=== PATIENT | male | born 1940 | race Caucasian/White ===

== ENCOUNTER 2016-09-29 22:26 | Emergency (ER) | payer BC ==
--- NOTE | 2016-09-30 00:04 | Emergency Department Record ---
History of Present Illness - General Chief complaint: Flu Like Symptoms Stated complaint: BAD COUGH Time Seen by Provider: 09/30/16 00:03 Source: Patient Mode of Arrival: Ambulatory - History of Present Illness Initial comments: The patient states he had ahs 8 days of coughing and now he cough's so hard it is painful, He has coughed up white on occasion, and is unable to sleep due to the amount of coughing. He is a former smoker of 32 years ago, and denies history of pneumonia. He does not get the flu shot. PMH includes a CABG about 10 years ago, low BP, andintermittent rapid HR. Onset/Timin -: Days(s) Severity scale (1-10): 6 Quality: Sharp Consistency: Intermittent Improves with: None Worsens with: Other Associated Symptoms: Denies other symptoms - Chin Coma Scale Eye Response: (4) Open spontaneously Motor Response: (6) Obeys commands Verbal Response: (5) Oriented [place] Total: 15 - Related Data Home Medications Medication Instructions Recorded Confirmed Last Taken Aspirin Chewable 81 mg PO DAILY 05/21/14 09/29/16 09/06/15 15:15 324 Previous Rx's Medication Instructions Recorded Azithromycin [Zithromax] 250 mg PO DAILY #4 tab 09/30/16 Promethazine HCl/Codeine 5 - 10 ml PO .AT BEDTIME PRN #60 ml 09/30/16 [Phenergan W/Codeine] Allergies Allergy/AdvReac Type Severity Reaction Status Date / Time No Known Drug Allergies Allergy Verified 09/29/16 23:03 Travel Screening - Travel/Exposure Within Last 30 Days Have you traveled within the last 30 days?: No - Travel/Exposure Within Last Year Have you traveled outside the [place] in the last year?: No - Additonal Travel Details Have you been exposed to anyone with a communicable illness?: No - Travel Symptoms Symptom Screening: None Review of Systems Reviewed: No additional complaints except as noted below Constitutional: Reports: As per HPI. Denies: Chills, Fever, Malaise, Night sweats, Weakness, Weight change Eyes: Reports: As per HPI. Denies: Eye discharge, Eye pain, Photophobia, Vision change ENT: Reports: As per HPI. Denies: Congestion, Dental pain, Ear pain, Epistaxis , Hearing loss, Throat pain Respiratory: Reports: As per HPI. Denies: Cough, Dyspnea, Hemoptysis, Stridor, Wheezes Cardiovascular: Reports: As per HPI. Denies: Arrhythmia, Chest pain, Dyspnea on exertion, Edema, Murmurs, Orthopnea, Palpitations, Paroxysmal nocturnal dyspnea, Rheumatic Fever, Syncope Endocrine: Reports: As per HPI. Denies: Fatigue, Heat or cold intolerance, Polydipsia, Polyuria Gastrointestinal: Reports: As per HPI. Denies: Abdominal pain, Constipation, Diarrhea, Hematemesis, Hematochezia, Melena, Nausea, Vomiting Genitourinary: Reports: As per HPI. Denies: Dysuria, Frequency, Hematuria, Incontinence, Retention, Testicular pain, Testicular mass, Urgency Musculoskeletal: Reports: As per HPI. Denies: Arthralgia, Back pain, Gout, Joint swelling, Myalgia, Neck pain Skin: Reports: As per HPI. Denies: Bruising, Change in color, Change in hair/ nails, Lesions, Pruritus, Rash Neurological: Reports: As per HPI. Denies: Abnormal gait, Confusion, Headache, Numbness, Paresthesias, Seizure, Tingling, Tremors, Vertigo, Weakness Psychiatric: Reports: As per HPI. Denies: Anxiety, Auditory hallucinations, Depression, Homicidal thoughts, Suicidal thoughts, Visual hallucinations Hematological/Lymphatic: Reports: As per HPI. Denies: Anemia, Blood Clots, Easy bleeding, Easy bruising, Swollen glands Past Medical History - SOCIAL HISTORY Smoking Status: Former smoker Alcohol Use: None Drug Use: None - RESPIRATORY Hx Respiratory Disorders: No - CARDIOVASCULAR Hx Cardio Disorders: Yes Hx Cardiac Cath: Yes Hx Chest Pain: Yes (triple bypass denies [place]) - NEURO Hx Neuro Disorders: No - GI Hx GI Disorders: No - Hx Genitourinary Disorders: No - ENDOCRINE Hx Endocrine Disorders: No - MUSCULOSKELETAL Hx Musculoskeletal Disorders: Yes Hx Arthritis: Yes ("I THINK I HAVE GOUT") - PSYCH Hx Psych Problems: No - HEMATOLOGY/ONCOLOGY Hx Hematology/Oncology Disorders: Yes Hx Cancer: Yes (Colon) Hx Chemotherapy: Yes Hx Radiation Therapy: Yes Family Medical History Any Significant Family History?: No Hx Heart Disease: Father Hx HTN: Brother/Sister Hx Resp Disorders: Brother/Sister Physical Exam - General General Appearance: Alert, Oriented x3, Cooperative, Moderate distress ( coughing spasms ) - Head Head exam: Normal inspection - Eye Eye exam: Normal appearance, PERRL Pupils: Normal accommodation - ENT ENT exam: Normal exam, Mucous membranes moist, Normal external ear exam, Normal orophraynx, TM's normal bilaterally Ear exam: Normal external inspection. negative: External canal tenderness Nasal Exam: Normal inspection. negative: Discharge, Sinus tenderness Mouth exam: Normal external inspection, Tongue normal Teeth exam: Normal inspection. negative: Dental caries Throat exam: Normal inspection. negative: Tonsillar erythema, Tonsillar exudate - Neck Neck exam: Normal inspection, Full ROM. negative: Tenderness - Respiratory Respiratory exam: Chest wall tenderness (left anterior sternal edge), Decreased breath sounds, Prolonged expiratory. negative: Respiratory distress - Cardiovascular Cardiovascular Exam: Regular rate, Normal rhythm, Normal heart sounds - GI/Abdominal GI/Abdominal exam: Soft, Normal bowel sounds. negative: Tenderness - Rectal Rectal exam: Deferred - exam: Deferred - Extremities Extremities exam: Normal inspection, Full ROM, Normal capillary refill. negative: Calf tenderness, Pedal edema, Tenderness - Back Back exam: Reports: Normal inspection, Full ROM. Denies: Muscle spasm, Rash noted, Tenderness - Neurological Neurological exam: Alert, CN II-XII intact, Normal gait, Oriented X3, Reflexes normal - Psychiatric Psychiatric exam: Normal affect, Normal mood - Skin Skin exam: Dry, Intact, Normal color, Warm Course Vital Signs 09/29/16 23:03 Temperature 98.6 F Pulse Rate 76 Respiratory 22 Rate Blood Pressure 139/82 Pulse Ox 96 Medical Decision Making - Data Complexity MDM Data: X-Ray Ordered and/or Reviewed (Increased markings behind heart and on left hilar region per Ed physician.) Disposition Disposition: Discharge Clinical Impression: Pneumonia Qualifiers: Pneumonia type: due to unspecified organism Laterality: left Lung location: lower lobe of lung Qualified Code(s): J18.1 - Lobar pneumonia, unspecified organism Disposition: Home, Self-Care Condition: (1) Good Instructions: Bacterial Pneumonia (ED) Additional Instructions: Take antibiotics as directed until gone. Tylenol or ibprofen as directed as needed for fevers, pain. Phenergan with codeine Elixir at bedtime 10 ml for cough suppression/sleep. Follow up with Dr. Pascal this week without fail for recheck. Your xray reading was preliminary ONLY, and any further final reading that differs from this preliminary reading will cause you to be notified. There is a chance you could need further studies, such as a CT, for example. Prescriptions: Promethazine HCl/Codeine [Phenergan W/Codeine] 5 - 10 ml PO .AT BEDTIME PRN #60 ml PRN Reason: Cough Azithromycin [Zithromax] 250 mg PO DAILY #4 tab Forms: Patient Portal Access
[2016-09-30 00:49] LABS: INFLUENZA A NEGATIVE (NEGATIVE); INFLUENZA B NEGATIVE (NEGATIVE)
[2016-09-30] MEDS ORDERED: CEFTRIAXONE SODIUM 2GM VIAL IM ONE (01:33)
[2016-09-30] MEDS ORDERED: AZITHROMYCIN 500 MG TABLET PO ONE (01:33)
[2016-09-30] MEDS ORDERED: PROMETHAZINE W/CODEINE 10ML UD PO ONE (01:40)
--- NOTE | 2016-10-03 14:34 | RADIOLOGY REPORT ---
EXAM: CHEST, TWO VIEWS HISTORY: COUGH, CHEST PAIN. TECHNIQUE: PA and lateral views of the chest were obtained. Comparison: Portable chest 01/09/15. FINDINGS: Postop sternotomy again evident. The heart size is within normal limits. Calcification and torsion of the aorta. Some segmental elevation of the right hemidiaphragm anteriorly. Apical pleural thickening bilaterally. There is a questionable small amount of infiltrate in the lung posterior to the heart seen on the lateral view. Old right rib fractures posteriorly involving the right fourth and fifth ribs. Mild spurring in the spine. There is some spurring in the acromioclavicular joints bilaterally at the shoulders. IMPRESSION: 1. POSTOP STERNOTOMY. 2. CALCIFICATION AND TORSION OF THE AORTA. 3. QUESTIONABLE SMALL AMOUNT OF INFILTRATE POSTERIOR TO THE HEART. 4. OLD RIGHT RIB FRACTURES. 5. DEGENERATIVE CHANGE IN THE SHOULDERS. JOB NUMBER: [id number] MTDD
== END 2016-09-30 02:06 | disposition home or self-care (01) ==
LOC: ER 22:26
DX: J18.1 Lobar pneumonia, unspecified organism (principal)
CPT/HCPCS: 71020; 87400; 96372; 99283; 99284

== ENCOUNTER 2016-10-10 07:55 | Emergency (ER) | payer BC ==
--- NOTE | 2016-10-10 08:13 | Emergency Department Record ---
History of Present Illness - General Chief Complaint: Chest Pain Stated Complaint: CHEST PAIN Time Seen by Provider: 10/10/16 08:03 Source: Patient Mode of Arrival: Ambulatory Limitations: No limitations - History of Present Illness Initial Comments: The patient is here due to a one hour hx of chest tightness which is similar to symptoms in the past when he has rapid A fib. He denies any SOB or SYLVAIN but has had a cough for the last couple of weeks. The patient was here in the ER last week and was treated with an oral Abx. He also has a hx of a 3 vessel CABG in the past. MD Complaint: Chest pain Onset/Timin -: Hour(s) Onset: Awoke with symptoms Pain Location: Substernal Quality: Aching Consistency: Constant Improves With: Nothing Worsens With: Nothing Treatments Prior to Arrival: Aspirin - Related Data Home Medications Medication Instructions Recorded Confirmed Last Taken Aspirin Chewable 81 mg PO DAILY 05/21/14 10/10/16 10/10/16 Previous Rx's Medication Instructions Recorded Doxycycline Monohydrate [Mondoxyne 100 mg PO BID #14 capsule 10/10/16 Nl] Allergies Allergy/AdvReac Type Severity Reaction Status Date / Time No Known Drug Allergies Allergy Verified 09/29/16 23:03 Travel Screening - Travel/Exposure Within Last 30 Days Have you traveled within the last 30 days?: No - Travel/Exposure Within Last Year Have you traveled outside the [place] in the last year?: No - Additonal Travel Details Have you been exposed to anyone with a communicable illness?: No Review of Systems Constitutional: Denies: Chills, Fever Eyes: Denies: Eye discharge ENT: Reports: Congestion Respiratory: Reports: Cough. Denies: Dyspnea Cardiovascular: Denies: Arrhythmia, Chest pain Endocrine: Denies: Fatigue Gastrointestinal: Denies: Abdominal pain Genitourinary: Denies: Dysuria Musculoskeletal: Denies: Back pain Skin: Denies: Bruising Past Medical History - SOCIAL HISTORY Smoking Status: Former smoker Alcohol Use: None Drug Use: None - RESPIRATORY Hx Respiratory Disorders: No - CARDIOVASCULAR Hx Cardio Disorders: Yes Hx Cardiac Cath: Yes Hx Chest Pain: Yes (triple bypass denies [place]) Hx Palpitations: Yes - NEURO Hx Neuro Disorders: No - GI Hx GI Disorders: No - Hx Genitourinary Disorders: No - ENDOCRINE Hx Endocrine Disorders: No - MUSCULOSKELETAL Hx Musculoskeletal Disorders: Yes Hx Arthritis: Yes ("I THINK I HAVE GOUT") - PSYCH Hx Psych Problems: No - HEMATOLOGY/ONCOLOGY Hx Hematology/Oncology Disorders: Yes Hx Cancer: Yes (Colon) Hx Chemotherapy: Yes Hx Radiation Therapy: Yes Family Medical History Any Significant Family History?: No Hx Heart Disease: Father Hx HTN: Brother/Sister Hx Resp Disorders: Brother/Sister Physical Exam - General General Appearance: Alert, Oriented x3, Cooperative, No acute distress - Head Head exam: Atraumatic, Normocephalic, Normal inspection - Eye Eye exam: Normal appearance, PERRL - ENT Throat exam: Normal inspection. negative: Tonsillar erythema, Tonsillar exudate - Neck Neck exam: Normal inspection, Full ROM. negative: Tenderness - Respiratory Respiratory exam: Normal lung sounds bilaterally. negative: Respiratory distress - Cardiovascular Cardiovascular Exam: Regular rate, Tachycardia. negative: Normal rhythm - GI/Abdominal GI/Abdominal exam: Soft, Normal bowel sounds. negative: Tenderness - Extremities Extremities exam: Normal inspection, Full ROM, Normal capillary refill. negative: Tenderness - Neurological Neurological exam: Alert, Normal gait. negative: Abnormal gait, Motor sensory deficit - Psychiatric Psychiatric exam: negative: Anxious Course Vital Signs 10/10/16 07:57 Temperature 97.7 F Pulse Rate 155 H Respiratory 20 Rate Blood Pressure 152/102 Pulse Ox 97 - Reevaluation(s) Reevaluation #1: The patient is doing much better at this time. He did convert to NSR with 15 mg of the Cardizem and is now resting comfortably with no pain or SYLVAIN. I did cancel the drip due to the conversion. 10/10/16 08:28 Reevaluation #2: 2nd EKG: NSR at 78, RBBB. No change from old. 10/10/16 09:18 Reevaluation #3: The patient is doing very well at this time. He denies any pain or discomfort and his HR has been WNL's for over an hour now. I did explain to the patient the need to stay in the hospital to make sure his heart is OK and to be sure he did not have any heart damage. The patient is refusing to stay here at [facility]. I explained the risk of leaving and the patient accepts the risks of leaving which include having heart damage, an OK, becoming disabled and even dying. The patient understands and accepts the risks and understands we cannot be held liable for NOT keeping him here. He is to see his PCP next week and to return to the ER for any problems or any pain. 10/10/16 09:19 Medical Decision Making - Data Complexity MDM Data: Labs Ordered and/or Reviewed, X-Ray Ordered and/or Reviewed, EKG Ordered and/or Reviewed - Lab Data Result diagrams: 10/10/16 08:00 10/10/16 08:00 - EKG Data -: EKG Interpreted by Me EKG: Unchanged From Previous (Supraventricular tachycardia at 160) - Radiology Data Radiology results: Report reviewed (CXR: No acute changes.) Disposition Disposition: Discharge Clinical Impression: Paroxysmal SVT (supraventricular tachycardia) Disposition: Home, Self-Care Condition: (1) Good Instructions: Chest Pain (ED) Additional Instructions: Please see your PCP early next week for recheck. Take the Doxycycline as directed. Please return to the ER for any pain, fast heart rate of any trouble breathing. Prescriptions: Doxycycline Monohydrate [Tristianxyne Nl] 100 mg PO BID #14 capsule Forms: Patient Portal Access Time of Disposition: 09:22
[2016-10-10] MEDS ORDERED: DILTIAZEM HCL 125 MG in 0.9 % SODIUM CHLORIDE 100ML 100 ML IV SCH (08:15)
[2016-10-10] MEDS: DILTIAZEM 25MG/5ML VIAL IV ONE (08:16)
[2016-10-10 08:20] LABS: BASO % 0.4 % (0-6); EOS % 3.9 % (0-6); GRAN % 63.8 % (47-80); HEMATOCRIT 43.7 % (42.0-52.0); HEMOGLOBIN 14.3 gm/dl (14.0-18.0); LYMPH % 21.3 % (16-45); MEAN CELL VOLUME 95.4 fl (81-97); MEAN CORPUSCULAR HEMOGLOBIN 31.2 pg (27-33); MEAN CORPUSCULAR HGB CONC 32.7 g/dl (32-36); MEAN PLATELET VOLUME 9.5 fl (7.4-10.4); MONO % 10.6 % (0-9); PLATELET COUNT 305 K/uL (130-400); RED BLOOD COUNT 4.58 M/uL (4.40-5.70); RED CELL DISTRIBUTION WIDTH 12.5 % (11.5-14.5); WHITE BLOOD COUNT W/O DIFF 11.2 K/uL (4.2-12.2)
[2016-10-10] MEDS: ASPIRIN 325 MG TABLET PO ONE (08:21)
[2016-10-10 08:35] LABS: ANION GAP 11.9 (7-16); BLOOD UREA NITROGEN 23 mg/dL (9-20); CARBON DIOXIDE 22.1 mmol/L (22-30); CREATINE PHOSPHOKINASE 97 U/L (55-170); CREATININE 1.3 mg/dL (0.66-1.25); EST GLOMERULAR FILTRATION RATE 57 ml/min; GLUCOSE,RANDOM 144 mg/dL (70-110); INR 0.93; PARTIAL THROMBOPLASTIN TIME 28.2 SECONDS (24.5-39.1); PROTHROMBIN TIME (PATIENT) 10.5 SECONDS (9.5-12.1)
[2016-10-10 08:47] LABS: CKMB 1.1 ug/L (0-6)
[2016-10-10 08:51] LABS: TROPONIN I < 0.012 ng/mL (0.00-0.034)
== END 2016-10-10 09:49 | disposition home or self-care (01) ==
LOC: ER 07:55
DX: I47.1 Supraventricular tachycardia (principal); Z98.61 Coronary angioplasty status
CPT/HCPCS: 71020; 80048; 82550; 82553; 84484; 85025; 85610; 85730; 93005; 93010; 96374; 99284

== ENCOUNTER 2017-07-20 18:30 | Observation (INO) | payer BC ==
[2017-07-20] MEDS ORDERED: SODIUM CHLORIDE 0.9% 500 ML IV ONE (18:32)
[2017-07-20] MEDS ORDERED: ACETAMINOPHEN 1,000 MG/100 ML BTL IVPB ONE (18:33)
[2017-07-20] MEDS ORDERED: METHYLPREDNISOLONE PF 125MG/VIAL IVP ONE (18:34)
--- NOTE | 2017-07-20 18:39 | Emergency Department Record ---
History of Present Illness - General Chief complaint: Lower Extremity Pain Stated complaint: BOTH LEG PAIN Time Seen by Provider: 07/20/17 18:31 Source: Patient, EMS Mode of Arrival: Stretcher Limitations: No limitations - History of Present Illness Initial comments: 77 yo male presents with bilateral ankle and knee pain that started on Friday. The pain has gradually increased. He states he has a history of gout. In the last 24 hours the pain has made it difficult to ambulate any distance. No fevers or redness. No nausea, vomiting, or diarrhea. No history of DVT or CHF. He has noted some swelling of the joints. He lives with his grandson who he reports is not helpful. His PCP is Dr Pascal. Complaint: Extremity pain, Joint pain -: Days(s) Location: Bilateral -: Yes Arthralgia Radiation: Distal Consistency: Constant Improves with: Immobilization Worsens with: Palpation, Walking, Weight bearing Associated Symptoms: Arthralgias, Other (cough for over a month) - Related Data Allergies Allergy/AdvReac Type Severity Reaction Status Date / Time No Known Drug Allergies Allergy Verified 07/20/17 18:33 Review of Systems Constitutional: Denies: Chills, Fever, Malaise, Weakness Eyes: Denies: Eye discharge ENT: Denies: Congestion, Dental pain, Ear pain, Epistaxis Respiratory: Reports: Cough. Denies: Dyspnea, Hemoptysis Cardiovascular: Denies: Chest pain, Palpitations, Syncope Endocrine: Denies: Fatigue Gastrointestinal: Denies: Abdominal pain, Diarrhea, Nausea, Vomiting Genitourinary: Denies: Dysuria, Frequency, Hematuria Musculoskeletal: Reports: Arthralgia, Joint swelling. Denies: Back pain, Myalgia, Neck pain Skin: Denies: Bruising, Change in color, Rash Neurological: Denies: Headache, Numbness, Paresthesias, Weakness Psychiatric: Denies: Anxiety Hematological/Lymphatic: Denies: Blood Clots, Easy bleeding, Easy bruising, Swollen glands Past Medical History - SOCIAL HISTORY Smoking Status: Former smoker Alcohol Use: None Drug Use: None - RESPIRATORY Hx Respiratory Disorders: No - CARDIOVASCULAR Hx Cardio Disorders: Yes Hx Cardiac Cath: Yes Hx Chest Pain: Yes (triple bypass denies [place]) Hx Palpitations: Yes - NEURO Hx Neuro Disorders: No - GI Hx GI Disorders: No - Hx Genitourinary Disorders: No - ENDOCRINE Hx Endocrine Disorders: No - MUSCULOSKELETAL Hx Musculoskeletal Disorders: Yes Hx Arthritis: Yes Comment:: gout - PSYCH Hx Psych Problems: No - HEMATOLOGY/ONCOLOGY Hx Hematology/Oncology Disorders: Yes Hx Cancer: Yes (Colon) Hx Chemotherapy: Yes Hx Radiation Therapy: Yes Family Medical History Any Significant Family History?: Yes Hx Heart Disease: Father Hx HTN: Brother/Sister Hx Resp Disorders: Brother/Sister Physical Exam - General General Appearance: Alert, Oriented x3, Cooperative, No acute distress Limitations: No limitations - Head Head exam: Atraumatic - Eye Eye exam: Normal appearance. negative: Conjunctival injection, Scleral icterus - ENT ENT exam: Normal exam, Mucous membranes moist Ear exam: Normal external inspection Nasal Exam: Normal inspection Mouth exam: Normal external inspection, Tongue elevation Teeth exam: Normal inspection Throat exam: Normal inspection - Neck Neck exam: Normal inspection, Full ROM. negative: Tenderness - Respiratory Respiratory exam: Normal lung sounds bilaterally. negative: Respiratory distress - Cardiovascular Cardiovascular Exam: Regular rate, Normal rhythm, Normal heart sounds - GI/Abdominal GI/Abdominal exam: Soft. negative: Rigid, Tenderness - Rectal Rectal exam: Deferred - exam: Deferred - Extremities Extremities exam: Full ROM, Joint swelling, Normal capillary refill, Tenderness. negative: Calf tenderness, Pedal edema Image of Full Body: 1 - mild bilateral ankle swelling, no redness or warmth, no calf tenderness, pain with ROM, Mild left knee swelling, pain with ROM, no warmth or erythema 2 - see other note - Back Back exam: Reports: Normal inspection. Denies: CVA tenderness (R), CVA tenderness (L) - Neurological Neurological exam: Alert, Oriented X3 - Psychiatric Psychiatric exam: Normal affect, Normal mood - Skin Skin exam: Dry, Intact, Normal color, Warm. negative: Erythema Course - Reevaluation(s) Reevaluation #1: 07/20/17 19:24 No acute changes on the CBC 07/20/17 19:37 The XRs were reviewed Left Knee effusion, small, tri compartmental degenerative changes Ankle STS degenerative changes CXR NAD. 07/20/17 19:39 The CRP is 22, the Uric Acid is elevated at 7.5, CR is 1.4 07/20/17 19:43 Dr Pascal saw the patient in the ER 07/20/17 19:52 The patient is too painful to walk/stand Dr Pascal with admit OBV 07/20/17 20:13 Influenza Negative Medical Decision Making - Lab Data Result diagrams: 07/20/17 18:42 07/20/17 18:42 Disposition Disposition: Admit Clinical Impression: Gout attack Qualifiers: Gout site: unspecified site Gout etiology: unspecified cause Qualified Code(s) : M10.9 - Gout, unspecified Disposition: Still a Patient at [facility] Decision to Admit: Admit from ER Decision to Admit Date: 07/20/17 Decision to Admit Time: 19:53 Time Discussed w/Accepting Physician: 19:53 Condition: (2) Stable Time of Disposition: 19:53 Quality - Quality Measures Quality Measures: N/A - Blood Pressure Screening Does Patient Have Any of the Following: Active Dx of HTN Blood Pressure Classification: Hypertensive Reading Systolic Measurement: 148 Diastolic Measurement: 91 Screening for High Blood Pressure: Patient Exclusion, Hx of HTN [G9744] Pre-Hypertensive Follow-up Interventions: Referral to alternative/primary care provider.
[2017-07-20 19:17] LABS: BASO % 0.3 % (0-6); EOS % 4.4 % (0-6); GRAN % 69.5 % (47-80); HEMATOCRIT 40.4 % (42.0-52.0); HEMOGLOBIN 13.6 gm/dl (14.0-18.0); LYMPH % 13.7 % (16-45); MEAN CELL VOLUME 94.4 fl (81-97); MEAN CORPUSCULAR HEMOGLOBIN 31.7 pg (27-33); MEAN CORPUSCULAR HGB CONC 33.7 g/dl (32-36); MEAN PLATELET VOLUME 9.8 fl (7.4-10.4); MONO % 12.1 % (0-9); PLATELET COUNT 278 K/uL (130-400); RED BLOOD COUNT 4.28 M/uL (4.40-5.70); RED CELL DISTRIBUTION WIDTH 12.3 % (11.5-14.5); WHITE BLOOD COUNT W/O DIFF 11.1 K/uL (4.2-12.2)
[2017-07-20 19:29] LABS: BILIRUBIN,TOTAL 0.5 mg/dL (0.2-1.0); CREATININE 1.4 mg/dL (0.7-1.2)
[2017-07-20 19:30] LABS: TOTAL PROTEIN 8.2 g/dL (6.6-8.7)
[2017-07-20 19:34] LABS: ALB/GLOB RATIO 0.8 (1.1-1.8); ALBUMIN 3.7 g/dL (4.0-5.0); C-REACTIVE PROTEIN 22.22 mg/dL (<0.5)
[2017-07-20 19:40] LABS: NTpro B-NATRIURETIC PEPTIDE 478.8 pg/mL (<450)
[2017-07-20] MEDS ORDERED: KETOROLAC 30 MG/ML VIAL IVP ONE (19:41)
[2017-07-20 19:48] LABS: ERYTHROCYTE SEDIMENTATION RATE 85 mm/hr (0-20)
[2017-07-20 20:02] LABS: INFLUENZA A NEGATIVE (NEGATIVE); INFLUENZA B NEGATIVE (NEGATIVE)
[2017-07-20] MEDS ORDERED: METHYLPREDNISOLONE PF 125MG/VIAL IVP SCH (20:13)
[2017-07-20] MEDS ORDERED: ACETAMINOPHEN 1,000 MG/100 ML BTL IVPB SCH (20:13)
[2017-07-20] MEDS ORDERED: MORPHINE SULFATE 5 MG/ML PFS IVP PRN (20:13)
[2017-07-20] MEDS ORDERED: 0.9 % SODIUM CHLORIDE 1000ML 1,000 ML IV PRN (20:13)
[2017-07-20] MEDS: ACETAMINOPHEN 1,000 MG/100 ML BTL IVPB SCH (23:26)
[2017-07-21] MEDS: ACETAMINOPHEN 1,000 MG/100 ML BTL IVPB SCH (05:23)
[2017-07-21] MEDS ORDERED: METHYLPREDNISOLONE PF 125MG/VIAL IVP SCH (06:00)
--- NOTE | 2017-07-21 07:11 | RADIOLOGY REPORT ---
EXAM: LEFT ANKLE HISTORY: INJURY. TECHNIQUE: Three views of the left ankle were performed. FINDINGS: There is osteopenia. There is diffuse soft tissue swelling. There is an osteochondral defect of the medial tibial plateau. There is a calcaneal spur. There is peripheral vascular disease. IMPRESSION: 1. OSTEOPENIA. SOFT TISSUE SWELLING. 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 2. PERIPHERAL VASCULAR DISEASE AND CALCANEAL SPUR. JOB NUMBER: [id number] MTDD
--- NOTE | 2017-07-21 07:13 | RADIOLOGY REPORT ---
EXAM: CHEST, TWO VIEWS HISTORY: DIFFICULTY IN BREATHING. TECHNIQUE: Frontal and lateral views of the chest were performed. FINDINGS: Postop sternotomy wires. The heart size is normal. The lungs are hyperinflated. Healed posterior rib fracture deformities. No infiltrate or pleural effusion. IMPRESSION: NO ACUTE DISEASE PROCESS. HYPERINFLATED LUNGS. HEALED RIGHT POSTERIOR RIB FRACTURE DEFORMITIES. JOB NUMBER: [id number] MTDD
--- NOTE | 2017-07-21 07:15 | RADIOLOGY REPORT ---
EXAM: LEFT KNEE HISTORY: INJURY. TECHNIQUE: Four views of the left knee were performed. FINDINGS: There is tricompartmental degenerative change. There is a moderate joint effusion. No definitive fracture. IMPRESSION: TRICOMPARTMENTAL DEGENERATIVE CHANGE. JOINT EFFUSION. NO DEFINITIVE FRACTURE. JOB NUMBER: [id number] MTDD
[2017-07-21] MEDS ORDERED: ACETAMINOPHEN 500 MG TABLET PO PRN (08:27)
[2017-07-21] MEDS ORDERED: ONDANSETRON 4 MG ODT TABLET SL PRN (08:29)
[2017-07-21] MEDS: INDOMETHACIN 25 MG CAPSULE PO SCH ×4 (10:00→22:48)
[2017-07-21] MEDS ORDERED: ASPIRIN 81 MG CHEWABLE TABLET PO SCH (10:00)
--- NOTE | 2017-07-21 14:25 | Discharge Note ---
VTE H&P Assessment - Risk for VTE Risk for VTE: No Risk Level: Very Low Risk Assessment Date: 07/21/17 Risk Assessment Time: 14:45 VTE Orders Placed or Will Be Placed: No VTE Reason for No Prophylaxis: Not Indicated Discharge Medications - Discharge Medications Home Medications: Ambulatory Orders Aspirin Chewable 81 mg PO DAILY 05/21/14 [Last Taken 10/10/16] Discharge Note - Date Date of Discharge Note: 07/21/17 Condition: (2) Stable Referrals: Steve Pascal D.OEmmy [Primary Care Provider] - Forms: Patient Portal Access
--- NOTE | 2017-07-21 14:51 | Discharge Note ---
VTE H&P Assessment - Risk for VTE Risk for VTE: No Risk Level: Very Low Risk Assessment Date: 07/21/17 Risk Assessment Time: 14:45 VTE Orders Placed or Will Be Placed: No VTE Reason for No Prophylaxis: Not Indicated Discharge Medications - Discharge Medications Prescriptions: Indomethacin [Indocin] 50 mg PO TID #14 capsule Home Medications: Ambulatory Orders Acetaminophen [Tylenol 500Mg Tab] 1,000 mg PO Q6H PRN tablet 07/21/17 [Last Taken Unknown] Aspirin Chewable 81 mg PO DAILYWM tab.chew 07/21/17 [Last Taken Unknown] Indomethacin [Indocin] 50 mg PO TID #14 capsule 07/21/17 [Last Taken Unknown] Discharge Note - Date Date of Discharge Note: 07/21/17 Disposition: Home, Self-Care Condition: (2) Stable Additional Instructions: follow up with Dr. Pascal on th indocin 50 mg three times a day aspirin 81 mg daily Referrals: Steve Pascal D.O. [Primary Care Provider] - Forms: Patient Portal Access Activity at Discharge: Increase Activity as Tolerated
[2017-07-21] MEDS: ENOXAPARIN 30 MG/0.3 ML SYR SQ SCH (16:20)
[2017-07-21] MEDS ORDERED: ALBUTEROL HFA 8 GM INHALER INH PRN (17:11)
[2017-07-21] MEDS: GUAIFENESIN 600 MG TABCR PO SCH ×2 (21:36→22:48)
[2017-07-22] MEDS ORDERED: KETOROLAC 30 MG/ML VIAL IVP ONE (06:31)
--- NOTE | 2017-07-22 07:49 | Discharge Note ---
VTE H&P Assessment - Risk for VTE Risk for VTE: Yes Risk Level: Low Risk Assessment Date: 07/21/17 Risk Assessment Time: 14:45 VTE Orders Placed or Will Be Placed: Yes VTE Reason for No Prophylaxis: Not Indicated Discharge Medications - Discharge Medications Prescriptions: Indomethacin [Indocin] 50 mg PO TID #14 capsule Home Medications: Ambulatory Orders Acetaminophen [Tylenol 500Mg Tab] 1,000 mg PO Q6H PRN tablet 07/21/17 [Last Taken Unknown] Aspirin Chewable 81 mg PO DAILYWM tab.chew 07/21/17 [Last Taken Unknown] Indomethacin [Indocin] 50 mg PO TID #14 capsule 07/21/17 [Last Taken Unknown] Discharge Note - Date Date of Discharge Note: 07/22/17 Disposition: Home, Self-Care Condition: (2) Stable Additional Instructions: follow up with Dr. Pascal on th indocin 50 mg three times a day aspirin 81 mg daily Prescriptions: Indomethacin [Indocin] 50 mg PO TID #14 capsule Referrals: Steve Pascal DEmmyOEmmy [Primary Care Provider] - Forms: Patient Portal Access Activity at Discharge: Increase Activity as Tolerated
[2017-07-22] MEDS ORDERED: ASPIRIN 81 MG CHEWABLE TABLET PO SCH (08:00)
[2017-07-22 08:32] LABS: CREATININE 1.3 mg/dL (0.7-1.2)
[2017-07-22] MEDS: INDOMETHACIN 25 MG CAPSULE PO SCH (10:39)
[2017-07-22] MEDS: GUAIFENESIN 600 MG TABCR PO SCH (10:41)
[2017-07-22] MEDS: ENOXAPARIN 30 MG/0.3 ML SYR SQ SCH (10:41)
--- NOTE | 2017-07-23 12:30 | History and Physical Report ---
DATE: 07/21/2017 at 2:38 p.m. This is an H&P that was done yesterday at about 8 p.m. on 07/20/2017. CHIEF COMPLAINT: Unable to walk, painful bilateral knees and bilateral ankles. HISTORY OF PRESENT ILLNESS: This 77-year-old man came into the emergency department by ambulance. His knees and ankles were swollen. He was evaluated in the ER by Dr. Jolley who diagnosed him with acute gouty arthritis and he felt it was too painful to go home. I happened to be in the ER at that time. I went in to see him. He is a patient who claims he has seen me in the past but has never seen me in the office and has seen me only in the hospital. He was unable to get up off the cart and ambulate, so he was placed in the hospital for observation. He was given IV Solu-Medrol and Toradol 50 mg IV and admitted for more Solu-Medrol and further evaluation. He had in the emergency department a left knee x-ray which was negative, a left ankle x-ray which was negative. A chest x-ray was negative, because he had a slight cough. He stopped smoking cigarettes and he has a smoker's cough is what he told me. Flu swabs were negative. PAST MEDICAL HISTORY: Coronary artery disease with coronary artery bypass grafting and he was lost to followup to Cardiology. He does not like going to the doctor. This happened in 2014. He does not remember how many bypasses he had. The surgery was done at [facility]. Other medical problems include hypertension but he is no longer taking any home medications. He says he has not seen a doctor since his open heart surgery. MEDICATIONS: None. ALLERGIES: No known drug allergies. FAMILY/PSYCHOSOCIAL HISTORY: Father had heart disease, brother and sister had hypertension, brother and sister had respiratory problems. He smoked more than [id number] history. He quit about 2 years ago after his open heart surgery. No alcohol or drug use. PAST SURGICAL HISTORY: Colon surgery, cardiac bypass surgery, 3 bypasses is what the nurse documented. REVIEW OF SYSTEMS: HEENT: No upper respiratory infection symptoms, cough, cold, or congestion. Cardiovascular: No chest pain, palpitations, or arrhythmia. Respiratory: He does have a cough, a chronic cough. He blames it on his smoking history. Gastrointestinal: No nausea, vomiting, diarrhea, black stools, or bloody stools. Genitourinary: No dysuria, hematuria, frequency, or burning on urination. Musculoskeletal: He has pain in both knees and ankles, unable to ambulate. Neurological: No CVA, paralysis, or paresthesias. Endocrine: No diabetes or thyroid disease. Integument: No rash, ulcers, change in moles, yellow skin, or jaundice. PHYSICAL EXAMINATION: VITALS: Height 5 feet 9 inches, weight 231 pounds. Temperature 98.2, pulse 71, blood pressure 102/58, respiratory rate 18, pulse ox 95% on room air. HEENT: Pupils are equal, round, and reactive to light and accommodation. Extraocular muscles are intact. Throat is clear. Nose is clear. Tympanic membranes are mcintyre. NECK: Supple. No jugular venous distention. No hepatojugular reflux. No carotid bruits. Thyroid is smooth. CARDIOVASCULAR: Regular rate and rhythm without murmurs, clicks, rubs, or gallops. RESPIRATORY: Clear to auscultation and percussion. ABDOMEN: Soft, nontender. No hepatosplenomegaly, no masses, no tenderness. Bowel sounds are active. No bruits. EXTREMITIES: Both knees are swollen and painful to move. Both ankles are painful to move. BREASTS: Normal male breasts. RECTAL: Exam deferred. GENITALIA: Deferred. NEUROLOGIC: Cranial nerves II-XII intact. No gross defects. Sensation normal, strength normal. Deep tendon reflexes equal bilaterally with Babinski negative. MENTAL STATUS: Alert and oriented x3. LABORATORY DATA: Uric acid was elevated at 7.5, CRP was elevated at 22. He did have a slightly elevated brain natriuretic peptide at 478. Influenza A and B were negative. BUN 1.4, creatinine 24, potassium 4.2, WBC 11,100, hemoglobin 13.6. IMPRESSION: 1. Acute exacerbation of gout. 2. Multiple joint pains, multiple joint effusions in both knees and both ankles. The left ankle and left knee are way worse than the right ankle and right knee and that is why the x-rays were only done on one side; the left knee and the left ankle. PLAN: IV Solu-Medrol 60 mg q.8 h. Possible switching over to Naprosyn or Indocin in the morning depending on his fluid hydration and how he does with steroids. I was a little bit concerned about starting nonsteroidals with his creatinine of 1.4. MTDD
--- NOTE | 2017-07-23 12:34 | Discharge Summary ---
DATE: 07/22/2017 DISCHARGE DIAGNOSES: 1. Acute exacerbation of gout. 2. Multiple joint pains and effusions. 3. History of coronary artery disease with coronary artery bypass grafting x3. 4. History of hypertension. ATTENDING PHYSICIAN: Steve Pascal DO REASON FOR HOSPITALIZATION: This 77-year-old male had severe pain in his extremities both knees, both ankles with severe swelling and pain. He could not ambulate. He called an ambulance, transported to the hospital and admitted to the hospital for treatment with IV Solu-Medrol. SIGNIFICANT FINDINGS: Uric acid was elevated at 7.5. C-reactive protein 22.2. Brain natriuretic peptide was up slightly at 478. We will evaluate that as an outpatient. The left knee x-ray was negative. Left ankle x-ray was negative. Chest x-ray was negative. Flu panel was negative. His creatinine was 1.4, BUN 24, potassium 4.2, WBC 11,100, hemoglobin 13.6. No other significant abnormalities in the lab. THERAPY PROVIDED: IV Solu-Medrol 125 in the emergency department on 60 mg q.8 h. and Toradol 50 mg IV in the emergency department. He was feeling much better. Switched him over to Indocin 50 mg 3 times a day orally and Tylenol. The patient is ambulating around the room, still has some discomfort but will be able to go home and further this treatment as an outpatient. We will reduce his uric acid in 3 days in the office on . CONDITION ON DISCHARGE: Much improved. DISCHARGE INSTRUCTIONS: Follow up with Dr. Pascal on , 07/24/2017. Two Extra Strength Tylenol 1000 mg q.6 h. p.r.n. pain, Indocin 50 mg t.i.d., aspirin 81 mg daily for his coronary artery disease. We will address his other ongoing coronary problems as an outpatient. His elevated brain natriuretic peptide will be evaluated as an outpatient and we will decide if he needs to follow up with Cardiology at that time. DATE: 07/22/2017 ADDENDUM: The patient states that he was too uncomfortable to leave last night when I recommended he leave the hospital for further outpatient care. At that point, I did not want to argue with him about this issue. We let him stay the night. He refused his oral Indocin in the middle of the night but he is feeling much better today. He is walking with a walker and states he is ready to go home. DISCHARGE DIAGNOSES: 1. Acute exacerbation of gout. 2. Coronary artery disease. ATTENDING PHYSICIAN: Steve Pascal, DO DISCHARGE INSTRUCTIONS: Follow up with Dr. Pascal on . Take the Indocin 50 mg 3 times a day, aspirin once a day 81 mg. On we will start him on a medication to lower the uric acid because of inflammatory phase of the gout will be dissipated. We can start to lower the uric acid. [facility]ENTERMark
== END 2017-07-22 12:06 | disposition home or self-care (01) ==
LOC: ER 18:30 → MEDSURG 20:17
PROVIDERS: ADMIT Emergency Medicine; ATTEND Emergency Medicine
DX: M10.9 Gout, unspecified (principal); M1A.9XX0 Chronic gout, unspecified, without tophus (tophi); M25.462 Effusion, left knee; M25.461 Effusion, right knee; M25.472 Effusion, left ankle; M25.471 Effusion, right ankle; Z87.891 Personal history of nicotine dependence; I25.810 Atherosclerosis of coronary artery bypass graft(s) without angina pectoris; Z85.038 Personal history of other malignant neoplasm of large intestine; I10 Essential (primary) hypertension
CPT/HCPCS: 71046; 80048; 80053; 83880; 84550; 85025; 85651; 86140; 87400; 94640; 96374; 96375; 99285; J1650; J2930

== ENCOUNTER 2017-09-22 09:41 | Emergency (ER) | payer BC ==
[2017-09-22] MEDS ORDERED: ASPIRIN 325 MG TABLET PO ONE (09:59)
--- NOTE | 2017-09-22 10:02 | Emergency Department Record ---
History of Present Illness - General Chief Complaint: Palpitations Stated Complaint: CHEST PAIN Time Seen by Provider: 09/22/17 09:52 Source: Patient Mode of Arrival: Ambulatory Limitations: No limitations - History of Present Illness Initial Comments: The patient is here due to developing CP and possibly palpitations about 20 minutes ago while driving. He was in the car when the symptoms came on. They lasted about 5-10 minutes and were associated with mild SYLVAIN. The symptoms did resolve spontaneously while driving here and walking into the ER. The patient is presently pain free. He was in the ER last week at [facility] and did have a stent placed 3 days ago. The patient is on Plavix and did take it today. MD Complaint: Palpitations Onset/Timin -: Minutes(s) Context: Other Arrythmia History: Atrial fibrillation Associated Symptoms: Shortness of breath - Related Data Home Medications Medication Instructions Recorded Confirmed Last Taken Benzonatate [Tessalon] 100 mg PO ASDIR 09/22/17 09/22/17 Unknown Clopidogrel Bisulfate [Plavix] 75 mg PO DAILY 09/22/17 09/22/17 09/22/17 Doxycycline Hyclate [Vibramycin] 100 mg PO DAILY 09/22/17 09/22/17 Unknown Prednisone [Deltasone] 20 mg PO DAILY 09/22/17 09/22/17 Unknown Allergies Allergy/AdvReac Type Severity Reaction Status Date / Time No Known Drug Allergies Allergy Verified 07/20/17 18:33 Travel Screening - Travel/Exposure Within Last 30 Days Have you traveled within the last 30 days?: No Review of Systems Constitutional: Denies: Chills, Fever Eyes: Denies: Eye discharge ENT: Denies: Congestion Respiratory: Denies: Cough, Dyspnea Cardiovascular: Denies: Arrhythmia Endocrine: Denies: Fatigue Gastrointestinal: Denies: Nausea Genitourinary: Denies: Dysuria Musculoskeletal: Denies: Arthralgia Past Medical History - SOCIAL HISTORY Smoking Status: Former smoker Alcohol Use: None Drug Use: None - RESPIRATORY Hx Respiratory Disorders: Yes Hx Bronchitis: Yes - CARDIOVASCULAR Hx Cardio Disorders: Yes Hx Cardiac Cath: Yes Hx Chest Pain: Yes (triple bypass denies MS) Hx Irregular Heartbeat: Yes (afib) Hx Palpitations: Yes Comment:: stent placed - NEURO Hx Neuro Disorders: No - GI Hx GI Disorders: No - Hx Genitourinary Disorders: No - ENDOCRINE Hx Endocrine Disorders: No - MUSCULOSKELETAL Hx Musculoskeletal Disorders: Yes Hx Arthritis: Yes Comment:: gout - PSYCH Hx Psych Problems: No - HEMATOLOGY/ONCOLOGY Hx Hematology/Oncology Disorders: Yes Hx Cancer: Yes (Colon) Hx Chemotherapy: Yes Hx Radiation Therapy: Yes Family Medical History Any Significant Family History?: Yes Hx Heart Disease: Father Hx HTN: Brother/Sister Hx Resp Disorders: Brother/Sister Physical Exam - General General Appearance: Alert, Oriented x3, Cooperative, No acute distress - Head Head exam: Atraumatic, Normocephalic, Normal inspection - Eye Eye exam: Normal appearance, PERRL - ENT Throat exam: Normal inspection. negative: Tonsillar erythema, Tonsillar exudate - Neck Neck exam: Normal inspection, Full ROM. negative: Tenderness - Respiratory Respiratory exam: Normal lung sounds bilaterally. negative: Respiratory distress - Cardiovascular Cardiovascular Exam: Regular rate, Normal rhythm, Normal heart sounds - GI/Abdominal GI/Abdominal exam: Soft, Normal bowel sounds. negative: Tenderness - Extremities Extremities exam: Normal inspection, Full ROM, Normal capillary refill. negative: Tenderness - Back Back exam: Reports: Normal inspection - Neurological Neurological exam: Alert, Normal gait. 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 He denies any pain, discomfort or SOB. I did explain to him that his test results are all WNL's. Due to the fact he just had a stent placed 3 days ago we did recommend hospital admission. The patient is refusing to stay in the hospital. I did explain to him that the risks of leaving are that the patient could go home and have an MS, stroke, stent closure, become disabled and . The patient understands and accepts the risks. He is to see his Dock Clerk BOZENA and also return to the ER for any return of the pain or if he changes his mind about staying in the hospital. 09/22/17 10:50 Medical Decision Making - Data Complexity MDM Data: EKG Ordered and/or Reviewed - Lab Data Result diagrams: 09/22/17 09:53 09/22/17 09:53 - EKG Data -: EKG Interpreted by Me EKG: No Acute Changes, Unchanged From Previous Disposition Disposition: Discharge Clinical Impression: Chest pain Qualifiers: Chest pain type: unspecified Qualified Code(s): R07.9 - Chest pain, unspecified Disposition: Against Medical Advice Condition: (2) Stable Instructions: Heart Palpitations (ED) Additional Instructions: Please continue your regular medicines. Please see your Dock Clerk BOZENA. Return to the ER for any recurrent pain, trouble breathing or SOB. Forms: Patient Portal Access Time of Disposition: 10:53 Quality - Quality Measures Quality Measures: N/A - Blood Pressure Screening View Details: Yes Does Patient Have Any of the Following: No Blood Pressure Classification: Pre-Hypertensive BP Reading Systolic Measurement: 132 Diastolic Measurement: 84 Screening for High Blood Pressure: < Pre-Hypertensive BP, F/U Documented > [ G8950] Pre-Hypertensive Follow-up Interventions: Referral to alternative/primary care provider.
[2017-09-22 10:06] LABS: HEMATOCRIT 39.1 % (42.0-52.0); HEMOGLOBIN 12.7 gm/dl (14.0-18.0); MEAN CELL VOLUME 94.9 fl (81-97); MEAN CORPUSCULAR HEMOGLOBIN 30.8 pg (27-33); MEAN CORPUSCULAR HGB CONC 32.5 g/dl (32-36); MEAN PLATELET VOLUME 9.1 fl (7.4-10.4); PLATELET COUNT 362 K/uL (130-400); RED BLOOD COUNT 4.12 M/uL (4.40-5.70); WHITE BLOOD COUNT W/O DIFF 15.5 K/uL (4.2-12.2)
[2017-09-22 10:25] LABS: PARTIAL THROMBOPLASTIN TIME 27.6 SECONDS (24.5-39.1); PROTHROMBIN TIME (PATIENT) 10.7 SECONDS (9.5-12.1)
[2017-09-22 10:28] LABS: BLOOD UREA NITROGEN 29 mg/dL (8-23); CREATININE 1.4 mg/dL (0.7-1.2); EST GLOMERULAR FILTRATION RATE 52 mL/min
[2017-09-22 10:31] LABS: GLUCOSE,RANDOM 113 mg/dL (74-109)
[2017-09-22 10:34] LABS: CREATINE PHOSPHOKINASE 85 U/L (39-308)
[2017-09-22 10:37] LABS: CKMB 2.4 ng/mL (<6.73)
== END 2017-09-22 11:11 | disposition left against medical advice (07) ==
LOC: ER 09:41
DX: R07.9 Chest pain, unspecified (principal); R06.00 Dyspnea, unspecified; I48.91 Unspecified atrial fibrillation; Z79.01 Long term (current) use of anticoagulants; Z95.5 Presence of coronary angioplasty implant and graft; Z87.891 Personal history of nicotine dependence
CPT/HCPCS: 80048; 82550; 82553; 84484; 85027; 85610; 85730; 93005; 93010; 99284

== ENCOUNTER 2017-10-14 11:37 | Emergency (ER) | payer BC ==
--- NOTE | 2017-10-14 11:49 | Emergency Department Record ---
History of Present Illness - General Chief Complaint: Palpitations Stated Complaint: PALPITATIONS Time Seen by Provider: 10/14/17 11:38 Source: Patient Mode of Arrival: Ambulatory Limitations: No limitations - History of Present Illness Initial Comments: 77 yo male presents with a sensation that he "is on the edge" of going into atrial fibrillation. He has had a vague feeling in the chest like he does with his atrial fibrillation. No syncope. No chest pain. The patient had a stent place a couple months prior. This is his 4th ED visit since the stent. No shortness of breath, edema, chest pain. No headache or dizziness. 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 Dr Pascal is his PCP. The most recent visit was for SVT. MD Complaint: Palpitations Onset/Timin -: Minutes(s) Context: Other Arrythmia History: Atrial fibrillation, SVT Associated Symptoms: Denies other symptoms - Related Data Allergies Allergy/AdvReac Type Severity Reaction Status Date / Time No Known Drug Allergies Allergy Verified 10/14/17 11:44 Travel Screening - Travel/Exposure Within Last 30 Days Have you traveled within the last 30 days?: No Review of Systems Constitutional: Denies: Chills, Fever, Malaise, Weakness Eyes: Denies: Eye discharge ENT: Denies: Congestion, Throat pain Respiratory: Reports: Cough. Denies: Dyspnea, Hemoptysis, Stridor, Wheezes Cardiovascular: Reports: Palpitations. Denies: Chest pain, Dyspnea on exertion , Edema, Syncope Endocrine: Denies: Fatigue, Polydipsia, Polyuria Gastrointestinal: Denies: Abdominal pain, Diarrhea, Nausea, Vomiting Genitourinary: Denies: Dysuria, Frequency, Hematuria Musculoskeletal: Denies: Arthralgia, Back pain, Joint swelling, Myalgia Skin: Denies: Bruising, Change in color, Rash Neurological: Denies: Headache, Numbness, Weakness Psychiatric: Denies: Anxiety Hematological/Lymphatic: Denies: Blood Clots, Easy bleeding, Easy bruising, Swollen glands Past Medical History - SOCIAL HISTORY Smoking Status: Former smoker Drug Use: None - RESPIRATORY Hx Respiratory Disorders: Yes Hx Bronchitis: Yes - CARDIOVASCULAR Hx Cardio Disorders: Yes Hx Cardiac Cath: Yes Hx Chest Pain: Yes (triple bypass denies [place]) Hx Irregular Heartbeat: Yes (afib) Hx Palpitations: Yes Comment:: stent placed - NEURO Hx Neuro Disorders: No - GI Hx GI Disorders: No - Hx Genitourinary Disorders: No - ENDOCRINE Hx Endocrine Disorders: No - MUSCULOSKELETAL Hx Musculoskeletal Disorders: Yes Hx Arthritis: Yes Comment:: gout - PSYCH Hx Psych Problems: No - HEMATOLOGY/ONCOLOGY Hx Hematology/Oncology Disorders: Yes Hx Cancer: Yes (Colon) Hx Chemotherapy: Yes Hx Radiation Therapy: Yes Family Medical History Hx Heart Disease: Father Hx HTN: Brother/Sister Hx Resp Disorders: Brother/Sister Physical Exam - General General Appearance: Alert, Oriented x3, Cooperative, No acute distress Limitations: No limitations - Head Head exam: Normal inspection - Eye Eye exam: Normal appearance, PERRL. negative: Conjunctival injection, Scleral icterus - ENT ENT exam: Normal exam, Mucous membranes moist, Normal external ear exam, Normal orophraynx, TM's normal bilaterally Ear exam: Normal external inspection. negative: External canal tenderness Nasal Exam: Normal inspection. negative: Discharge, Sinus tenderness Mouth exam: Normal external inspection, Tongue normal Teeth exam: Normal inspection. negative: Dental caries Throat exam: Normal inspection. negative: Tonsillar erythema, Tonsillar exudate - Neck Neck exam: Normal inspection, Full ROM. negative: Tenderness - Respiratory Respiratory exam: Normal lung sounds bilaterally. negative: Respiratory distress - Cardiovascular Cardiovascular Exam: Regular rate, Normal rhythm, Normal heart sounds. negative : Irregular rhythm, Tachycardia Peripheral Pulses: 2+: Radial (R), Radial (L) - GI/Abdominal GI/Abdominal exam: Soft. negative: Tenderness - Rectal Rectal exam: Deferred - exam: Deferred - Extremities Extremities exam: Normal inspection, Full ROM, Normal capillary refill. negative: Pedal edema, Tenderness - Back Back exam: Reports: Normal inspection. Denies: CVA tenderness (R), CVA tenderness (L) - Neurological Neurological exam: Alert, Oriented X3 - Psychiatric Psychiatric exam: Normal affect, Normal mood - Skin Skin exam: Dry, Intact, Normal color, Warm Course Vital Signs 10/14/17 11:41 Pulse Rate 83 Respiratory 20 Rate Blood Pressure 192/99 Pulse Ox 95 - Reevaluation(s) Reevaluation #1: EKG nsr rate is 84, intervals RBBB, Qtc 484, ST no acute changes. No changes from 09/30/17. Pt did have prior SVT. 10/14/17 11:47 10/14/17 12:31 The labs were reviewed No acute changes on the CBC,CMP,Troponin No afib or SVT in the ED. 10/14/17 12:56 The patient remains asymptomatic No tachycardia The patient was encouraged to call his dry kiln operator helper today to schedule his followup I ULISES Pascal. The patient is non compliant with his follow up. He has either not scheduled or maintained appointments Medical Decision Making - Lab Data Result diagrams: 10/14/17 11:45 10/14/17 11:45 Disposition Disposition: Discharge Clinical Impression: Palpitations Disposition: Home, Self-Care Condition: (1) Good Instructions: Heart Palpitations (ED) Additional Instructions: Call your heart doctor and Dr Pascal for close follow up Return if you have any new concerns or palpitations Forms: Patient Portal Access Time of Disposition: 12:35 Quality - Quality Measures Quality Measures: N/A - Blood Pressure Screening Does Patient Have Any of the Following: Active Dx of HTN Blood Pressure Classification: Hypertensive Reading Systolic Measurement: 192 Diastolic Measurement: 99 Screening for High Blood Pressure: Patient Exclusion, Hx of HTN [G9744]
[2017-10-14 11:52] LABS: BASO % 0.3 % (0-6); EOS % 7.4 % (0-6); GRAN % 69.7 % (47-80); HEMATOCRIT 41.1 % (42.0-52.0); HEMOGLOBIN 13.4 gm/dl (14.0-18.0); LYMPH % 13.1 % (16-45); MEAN CORPUSCULAR HEMOGLOBIN 31.3 pg (27-33); MEAN CORPUSCULAR HGB CONC 32.6 g/dl (32-36); MEAN PLATELET VOLUME 8.6 fl (7.4-10.4); MONO % 9.5 % (0-9); PLATELET COUNT 260 K/uL (130-400); RED BLOOD COUNT 4.28 M/uL (4.40-5.70); RED CELL DISTRIBUTION WIDTH 14.1 % (11.5-14.5); WHITE BLOOD COUNT W/O DIFF 11.5 K/uL (4.2-12.2)
[2017-10-14 12:04] LABS: BLOOD UREA NITROGEN 20 mg/dL (8-23); CREATININE 1.3 mg/dL (0.7-1.2); EST GLOMERULAR FILTRATION RATE 57 mL/min; TOTAL PROTEIN 7.9 g/dL (6.6-8.7)
[2017-10-14 12:06] LABS: GLUCOSE,RANDOM 117 mg/dL (74-109); PARTIAL THROMBOPLASTIN TIME 30.8 SECONDS (24.5-39.1)
[2017-10-14 12:09] LABS: ALB/GLOB RATIO 1.2 (1.1-1.8); ALBUMIN 4.3 g/dL (4.0-5.0); ALKALINE PHOSPHATASE 69 U/L (40-129); ALT/SGPT 19 U/L (<41); AST/SGOT 19 U/L (10.0-50.0)
== END 2017-10-14 13:20 | disposition home or self-care (01) ==
LOC: ER 11:37
DX: R00.2 Palpitations (principal); R05 Cough; I10 Essential (primary) hypertension; I25.2 Old myocardial infarction; Z87.891 Personal history of nicotine dependence; Z95.1 Presence of aortocoronary bypass graft; Z85.038 Personal history of other malignant neoplasm of large intestine; Z79.02 Long term (current) use of antithrombotics/antiplatelets
CPT/HCPCS: 80053; 83735; 84484; 85025; 85610; 85730; 93005; 93010; 99284

== ENCOUNTER 2018-01-15 11:20 | Emergency (ER) | payer BC ==
--- NOTE | 2018-01-15 11:36 | Emergency Department Record ---
History of Present Illness - General Chief Complaint: Chest Pain Stated Complaint: CHEST PAIN Time Seen by Provider: 01/15/18 11:32 Source: Patient Mode of Arrival: Ambulatory Limitations: No limitations - History of Present Illness Initial Comments: Pt to ED with complaint of "rapid heart rate" onset one hour before arrival. Slight sense of pressure but no CP. No SYLVAIN, Nausea, radiation. Hx similar in past frequently. Hx CABG 10 years ago and recent stent at [facility] months ago. No increase caffiene, OTC meds, or stimulants. Denies ETOH abuse. Not taking meds for this issue. Onset/Timin -: Minutes(s) Onset: During rest Pain Location: Substernal Pain Radiation: None Severity: Mild Severity scale (1-10): 2 Quality: Dull Consistency: Constant Improves With: Nothing Worsens With: Nothing Treatments Prior to Arrival: Aspirin - Related Data Previous Rx's Medication Instructions Recorded Diltiazem HCl [Cardizem Cd] 120 mg PO DAILY 30 Days #30 01/15/18 cap.er.24h Allergies Allergy/AdvReac Type Severity Reaction Status Date / Time No Known Drug Allergies Allergy Verified 01/15/18 11:25 Travel Screening - Travel/Exposure Within Last 30 Days Have you traveled within the last 30 days?: No Review of Systems Constitutional: Denies: Chills, Fever, Weakness Eyes: Denies: Eye pain, Vision change ENT: Denies: Congestion Respiratory: Denies: Cough, Dyspnea Cardiovascular: Reports: As per HPI, Arrhythmia. Denies: Dyspnea on exertion, Syncope Endocrine: Denies: Fatigue Gastrointestinal: Denies: Abdominal pain, Nausea, Vomiting Genitourinary: Denies: Dysuria, Hematuria Musculoskeletal: Denies: Back pain Skin: Denies: Bruising Neurological: Denies: Abnormal gait, Numbness, Weakness Psychiatric: Denies: Anxiety, Depression Hematological/Lymphatic: Denies: Anemia Past Medical History - SOCIAL HISTORY Smoking Status: Former smoker Alcohol Use: None Drug Use: None - RESPIRATORY Hx Respiratory Disorders: Yes Hx Bronchitis: Yes - CARDIOVASCULAR Hx Cardio Disorders: Yes Hx Cardiac Cath: Yes Hx Chest Pain: Yes (triple bypass denies [place]) Hx Irregular Heartbeat: Yes (afib) Hx Palpitations: Yes Comment:: stent placed - NEURO Hx Neuro Disorders: No - GI Hx GI Disorders: No - Hx Genitourinary Disorders: No - ENDOCRINE Hx Endocrine Disorders: No - MUSCULOSKELETAL Hx Musculoskeletal Disorders: Yes Hx Arthritis: Yes Comment:: gout - PSYCH Hx Psych Problems: No - HEMATOLOGY/ONCOLOGY Hx Hematology/Oncology Disorders: Yes Hx Cancer: Yes (Colon) Hx Chemotherapy: Yes Hx Radiation Therapy: Yes Family Medical History Any Significant Family History?: Yes Hx Heart Disease: Father Hx HTN: Brother/Sister Hx Resp Disorders: Brother/Sister Physical Exam - General General Appearance: Alert, Oriented x3, Cooperative, No acute distress Limitations: No limitations - Head Head exam: Atraumatic - Eye Eye exam: Normal appearance, PERRL, EOMI - ENT ENT exam: Mucous membranes moist, Normal external ear exam, Normal orophraynx, TM's normal bilaterally - Neck Neck exam: Normal inspection. negative: Lymphadenopathy - Respiratory Respiratory exam: Normal lung sounds bilaterally, Stridor. negative: Rhonchi, Wheezes - Cardiovascular Cardiovascular Exam: Normal rhythm, Tachycardia (at 150). negative: Irregular rhythm Peripheral Pulses: 2+: Radial (R), Radial (L) - GI/Abdominal GI/Abdominal exam: Soft, Normal bowel sounds. negative: Guarding, Rebound, Tenderness - Rectal Rectal exam: Deferred - exam: Deferred - Extremities Extremities exam: Normal inspection. negative: Pedal edema, Tenderness - Back Back exam: Reports: Normal inspection. Denies: CVA tenderness (R), CVA tenderness (L) - Neurological Neurological exam: Alert, Normal gait, Oriented X3 - Psychiatric Psychiatric exam: Normal affect, Normal mood - Skin Skin exam: Normal color Course Vital Signs 01/15/18 11:21 Temperature 98.1 F Pulse Rate 156 H Respiratory 20 Rate Blood Pressure 116/91 Pulse Ox 99 - Reevaluation(s) Reevaluation #1: 01/15/18 12:08 Pt HR 80 after Cardizem 10mg bolus. Refused CXR. Feeling better. EKG repeated. Reevaluation #2: 01/15/18 12:28 Pt much better. HR 80. Discussed need for home Cardizema nd cardio follow up . agrees. Procedures - EKG Initial Date: 01/15/18 Time: 11:35 EKG: Abnormal EKG (sinus tach at 152, RBBB - hx similar) - EKG Repeat Repeat #1 EKG Detail: SR 79 Medical Decision Making - Lab Data Result diagrams: 01/15/18 11:30 01/15/18 11:30 Disposition Disposition: Discharge Clinical Impression: Sinus tachycardia Disposition: Home, Self-Care Condition: (2) Stable Instructions: Supraventricular Tachycardia (ED) Prescriptions: Diltiazem HCl [Cardizem Cd] 120 mg PO DAILY 30 Days #30 cap.er.24h Forms: Patient Portal Access Quality - Quality Measures Quality Measures: N/A - Blood Pressure Screening Does Patient Have Any of the Following: No Blood Pressure Classification: Hypertensive Reading Systolic Measurement: 116 Diastolic Measurement: 91 Screening for High Blood Pressure: < Pre-Hypertensive BP, F/U Documented > [ G8950] Pre-Hypertensive Follow-up Interventions: Follow-up with rescreen every year., Lifestyle modifications. Lifestyle Modification: Dietary Sodium Restriction
[2018-01-15 11:39] LABS: BASO % 0.3 % (0-6); EOS % 7.3 % (0-6); GRAN % 63.9 % (47-80); HEMATOCRIT 41.1 % (42.0-52.0); HEMOGLOBIN 13.9 gm/dl (14.0-18.0); LYMPH % 17.5 % (16-45); MEAN CELL VOLUME 92.4 fl (81-97); MEAN CORPUSCULAR HEMOGLOBIN 31.2 pg (27-33); MEAN CORPUSCULAR HGB CONC 33.8 g/dl (32-36); MEAN PLATELET VOLUME 9.2 fl (7.4-10.4); PLATELET COUNT 209 K/uL (130-400); RED BLOOD COUNT 4.45 M/uL (4.40-5.70); RED CELL DISTRIBUTION WIDTH 12.8 % (11.5-14.5); WHITE BLOOD COUNT W/O DIFF 8.6 K/uL (4.2-12.2)
[2018-01-15] MEDS: 0.9 % SODIUM CHLORIDE 1000ML 1,000 ML IV PRN (11:45)
[2018-01-15] MEDS: ASPIRIN 81 MG CHEWABLE TABLET PO ONE (11:46)
[2018-01-15] MEDS: DILTIAZEM 25MG/5ML VIAL IV ONE (11:48)
[2018-01-15 11:52] LABS: BLOOD UREA NITROGEN 22 mg/dL (8-23); CREATININE 1.3 mg/dL (0.7-1.2); EST GLOMERULAR FILTRATION RATE 57 mL/min
[2018-01-15 11:55] LABS: GLUCOSE,RANDOM 124 mg/dL (74-109)
[2018-01-15 12:09] LABS: THYROID STIMULATING HORMONE 3.83 uIU/mL (0.270-4.20)
== END 2018-01-15 12:58 | disposition home or self-care (01) ==
LOC: ER 11:20
DX: R00.0 Tachycardia, unspecified (principal); I48.91 Unspecified atrial fibrillation; Z87.891 Personal history of nicotine dependence; Z95.5 Presence of coronary angioplasty implant and graft
CPT/HCPCS: 80048; 84443; 84484; 85025; 93005; 93010; 96374; 99284

== ENCOUNTER 2018-02-28 02:12 | Emergency (ER) | payer BC ==
[2018-02-28] MEDS ORDERED: ADENOSINE 12 MG/4 ML VIAL IVP ONE (02:22)
--- NOTE | 2018-02-28 02:25 | Emergency Department Record ---
History of Present Illness - General Chief Complaint: Chest Pain Stated Complaint: CHEST PAIN PALPATATIONS Time Seen by Provider: 02/28/18 02:22 Source: Patient Mode of Arrival: Ambulatory Limitations: No limitations - History of Present Illness Initial Comments: 77 yo male presents to ED for evaluation of chest discomfort and palpitations. Patient reports that his symptoms began 1 hour prior to arrival. Patient reports a previous history of arrhythmia, however he does not take his Cardizem "because it makes me feel old". Patient is unsure of his previous arrhythmia, and does report recent bypass surgery in August of this year. Patient denies fevers, chills, or recent illness. Patient did take ASA prior to arrival. MD Complaint: Chest pain, Other (palpitations) Onset/Timin -: Hour(s) Onset: During rest Pain Location: Substernal, Left chest Pain Radiation: None Severity: Moderate Severity scale (1-10): 7 Quality: Dull Consistency: Constant Improves With: Nothing Worsens With: Nothing Context: New medications Treatments Prior to Arrival: Aspirin Treatment Prior to Arrival Comment:: TOOK 4 BABY ASA @ 0130 - Related Data Previous Rx's Medication Instructions Recorded Diltiazem HCl [Cardizem Cd] 120 mg PO DAILY 30 Days #30 01/15/18 cap.er.24h Allergies Allergy/AdvReac Type Severity Reaction Status Date / Time No Known Drug Allergies Allergy Verified 01/15/18 11:25 Travel Screening - Travel/Exposure Within Last 30 Days Have you traveled within the last 30 days?: No - Travel/Exposure Within Last Year Have you traveled outside the [place] in the last year?: No - Additonal Travel Details Have you been exposed to anyone with a communicable illness?: No - Travel Symptoms Symptom Screening: None Review of Systems Constitutional: Denies: Chills, Fever, Malaise, Night sweats Eyes: Denies: Eye discharge, Eye pain ENT: Denies: Congestion, Ear pain, Epistaxis Respiratory: Denies: Cough, Dyspnea Cardiovascular: Reports: Chest pain, Palpitations. Denies: Dyspnea on exertion , Edema, Syncope Endocrine: Denies: Fatigue Gastrointestinal: Denies: Abdominal pain, Nausea, Vomiting Genitourinary: Denies: Incontinence, Retention Musculoskeletal: Denies: Arthralgia, Back pain Skin: Denies: Bruising, Change in color Neurological: Denies: Abnormal gait, Confusion, Headache, Seizure Psychiatric: Denies: Anxiety Hematological/Lymphatic: Denies: Anemia, Blood Clots Past Medical History - SOCIAL HISTORY Smoking Status: Former smoker Alcohol Use: None Drug Use: None - RESPIRATORY Hx Respiratory Disorders: Yes Hx Bronchitis: Yes - CARDIOVASCULAR Hx Cardio Disorders: Yes Hx Cardiac Cath: Yes Hx Chest Pain: Yes (triple bypass denies MT) Hx Irregular Heartbeat: Yes (afib) Hx Palpitations: Yes Comment:: stent placed - NEURO Hx Neuro Disorders: No - GI Hx GI Disorders: No - Hx Genitourinary Disorders: No - ENDOCRINE Hx Endocrine Disorders: No - MUSCULOSKELETAL Hx Musculoskeletal Disorders: Yes Hx Arthritis: Yes Comment:: gout - PSYCH Hx Psych Problems: No - HEMATOLOGY/ONCOLOGY Hx Hematology/Oncology Disorders: Yes Hx Cancer: Yes (Colon) Hx Chemotherapy: Yes Hx Radiation Therapy: Yes Family Medical History Any Significant Family History?: No Hx Heart Disease: Father Hx HTN: Brother/Sister Hx Resp Disorders: Brother/Sister Physical Exam - General General Appearance: Alert, Oriented x3, Cooperative, Moderate distress Limitations: No limitations - Head Head exam: Atraumatic, Normocephalic, Normal inspection Head exam detail: negative: Abrasion, Contusion, Copeland's sign, General tenderness, Hematoma, Laceration - Eye Eye exam: Normal appearance. negative: Conjunctival injection, Periorbital swelling, Periorbital tenderness, Scleral icterus - ENT Ear exam: negative: Auricular hematoma, Auricular trauma Nasal Exam: negative: Active bleeding, Discharge, Dried blood, Foreign body Mouth exam: negative: Drooling, Laceration, Muffled voice, Tongue elevation - Neck Neck exam: Normal inspection. negative: Meningismus, Tenderness - Respiratory Respiratory exam: Normal lung sounds bilaterally. negative: Rales, Respiratory distress, Rhonchi, Stridor - Cardiovascular Cardiovascular Exam: Normal rhythm, Normal heart sounds, Tachycardia - GI/Abdominal GI/Abdominal exam: Soft. negative: Rebound, Rigid, Tenderness - Rectal Rectal exam: Deferred - exam: Deferred - Extremities Extremities exam: Normal inspection. negative: Calf tenderness, Pedal edema, Tenderness - Back Back exam: Denies: CVA tenderness (R), CVA tenderness (L) - Neurological Neurological exam: Alert, Normal gait, Oriented X3 - Psychiatric Psychiatric exam: Normal affect, Normal mood - Skin Skin exam: Normal color. negative: Abrasion Type of lesion: negative: abrasion Course Vital Signs 02/28/18 02:13 Temperature 98.1 F Pulse Rate 151 H Respiratory 18 Rate Blood Pressure 130/97 Pulse Ox 100 - Reevaluation(s) Reevaluation #1: 02/28/18 02:31 EKG: SVT 151 RBBB, RAD Rate related ST-T wave changes #2 Following cardioversion NSR 95 RBBB, RAD Nonspecific ST-T wave changes Reevaluation #2: 02/28/18 03:09 Labs were reviewed and are grossly unremarkable for an acute process. Will initiate transfer to [facility] for further cardiac evaluation. Reevaluation #3: 02/28/18 03:21 Following discussion with the patient regarding transfer, patient reports that they want to leave AMA at this time. Risks of , permanent impairment, or worsening of their current condition were discussed as well as the benefit of transfer for further evaluation and cardiac evaluation of his presenting symptoms. Patient verbalizes understanding of all risks and benefits, desires to leave AMA despite these risks. Based on my examination, the patient is alert , oriented, and answers all questions appropriately. Patient appears to have the capacity to make rational decisions based on my examination. Patient was encouraged to return to the ED immediately if they change their mind about treatment and want to be re-evaluated. Medical Decision Making - Lab Data Result diagrams: 02/28/18 02:20 02/28/18 02:20 Critical Care Time Critical Care Time: Yes Total Critical Care Time: 35 Critical Care Time: Diagnosis and treatment of SVT with RBBB, evaluation for ACS, transfer for cardiac evaluation. Disposition Disposition: Discharge Clinical Impression: SVT (supraventricular tachycardia) Chest pain Qualifiers: Chest pain type: unspecified Qualified Code(s): R07.9 - Chest pain, unspecified Disposition: Against Medical Advice Condition: (2) Stable Instructions: Chest Pain (ED) Additional Instructions: Return to ED if your symptoms worsen or if you have any concerns. Take your Cardizem as directed. Follow-up with Dr. Falcon in 1-3 days as directed. Forms: Patient Portal Access Time of Disposition: 03:23 Quality - Quality Measures Quality Measures: N/A - Blood Pressure Screening Does Patient Have Any of the Following: Active Dx of HTN Blood Pressure Classification: Hypertensive Reading Systolic Measurement: 130 Diastolic Measurement: 97 Screening for High Blood Pressure: Patient Exclusion, Hx of HTN [C6641]
[2018-02-28 02:34] LABS: BASO % 0.5 % (0-6); EOS % 9.2 % (0-6); GRAN % 53.7 % (47-80); HEMOGLOBIN 13.5 gm/dl (14.0-18.0); LYMPH % 25.9 % (16-45); MEAN CORPUSCULAR HGB CONC 32.9 g/dl (32-36); MEAN PLATELET VOLUME 9.2 fl (7.4-10.4); MONO % 10.7 % (0-9); PLATELET COUNT 213 K/uL (130-400); RED BLOOD COUNT 4.36 M/uL (4.40-5.70); RED CELL DISTRIBUTION WIDTH 13.3 % (11.5-14.5); WHITE BLOOD COUNT W/O DIFF 7.9 K/uL (4.2-12.2)
[2018-02-28] MEDS ORDERED: ASPIRIN 81 MG CHEWABLE TABLET PO ONE (02:34)
[2018-02-28 02:38] LABS: MEAN CORPUSCULAR HEMOGLOBIN 30.9 pg (27-33)
[2018-02-28] MEDS ORDERED: 0.9 % SODIUM CHLORIDE 1000ML 500 ML IV SCH (02:45)
[2018-02-28 02:47] LABS: BLOOD UREA NITROGEN 23 mg/dL (8-23); CREATININE 1.4 mg/dL (0.7-1.2); EST GLOMERULAR FILTRATION RATE 52 mL/min
[2018-02-28 02:48] LABS: TOTAL PROTEIN 7.3 g/dL (6.6-8.7)
[2018-02-28 02:50] LABS: GLUCOSE,RANDOM 136 mg/dL (74-109)
[2018-02-28 02:53] LABS: ALB/GLOB RATIO 1.4 (1.1-1.8); ALBUMIN 4.2 g/dL (4.0-5.0); ALKALINE PHOSPHATASE 59 U/L (40-129); ALT/SGPT 20 U/L (<41); AST/SGOT 21 U/L (10.0-50.0)
== END 2018-02-28 03:32 | disposition left against medical advice (07) ==
LOC: ER 02:12
DX: I47.1 Supraventricular tachycardia (principal); I45.10 Unspecified right bundle-branch block; R07.2 Precordial pain; I10 Essential (primary) hypertension; Z87.891 Personal history of nicotine dependence; Z95.5 Presence of coronary angioplasty implant and graft; Z95.1 Presence of aortocoronary bypass graft
CPT/HCPCS: 99291 ×2; 96374; 85025; 80053; 84484; 93005; 93010; J0150; J7030

== ENCOUNTER 2018-03-01 01:57 | Emergency (ER) | payer BC ==
[2018-03-01] MEDS ORDERED: ADENOSINE 12 MG/4 ML VIAL IVP ONE (02:04)
[2018-03-01] MEDS ORDERED: ASPIRIN 81 MG CHEWABLE TABLET PO ONE (02:04)
--- NOTE | 2018-03-01 02:10 | Emergency Department Record ---
History of Present Illness - General Chief Complaint: Chest Pain Stated Complaint: CHEST PAIN HEARTS BEATING FAST Time Seen by Provider: 03/01/18 02:02 Source: Patient Mode of Arrival: Ambulatory Limitations: No limitations - History of Present Illness Initial Comments: 77 yo male returns to ED for evaluation of palpitations and chest discomfort that began 30 minutes prior to arrival. Patient was seen last night for similar symptoms, was found to be in SVT and converted with Adenosine 12 mg. Patient chose not to be transferred last night to [facility] for further cardiac evaluation. 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 Patient reports that he did not resume his cardizem as he was instructed. Complaint: Chest pain Onset/Timin -: Minutes(s) Onset: Awoke with symptoms Pain Location: Substernal Pain Radiation: None Severity: Moderate Quality: Aching Consistency: Constant Improves With: Nothing Worsens With: Nothing Context: Other (Medication non-compliance) Treatments Prior to Arrival: Aspirin - Related Data Previous Rx's Medication Instructions Recorded Diltiazem HCl [Cardizem Cd] 120 mg PO DAILY 30 Days #30 01/15/18 cap.er.24h Allergies Allergy/AdvReac Type Severity Reaction Status Date / Time No Known Drug Allergies Allergy Verified 01/15/18 11:25 Review of Systems Constitutional: Denies: Chills, Fever, Malaise, Night sweats Eyes: Denies: Eye discharge, Eye pain ENT: Denies: Congestion, Ear pain, Epistaxis Respiratory: Denies: Cough, Dyspnea Cardiovascular: Reports: Chest pain, Palpitations. Denies: Dyspnea on exertion Endocrine: Denies: Fatigue, Heat or cold intolerance Gastrointestinal: Denies: Abdominal pain, Nausea, Vomiting Genitourinary: Denies: Incontinence, Retention Musculoskeletal: Denies: Arthralgia, Back pain Skin: Denies: Bruising, Change in color Neurological: Denies: Abnormal gait, Confusion, Headache, Seizure Psychiatric: Denies: Anxiety Hematological/Lymphatic: Denies: Anemia, Blood Clots Past Medical History - SOCIAL HISTORY Smoking Status: Former smoker Drug Use: None - RESPIRATORY Hx Respiratory Disorders: Yes Hx Bronchitis: Yes - CARDIOVASCULAR Hx Cardio Disorders: Yes Hx Cardiac Cath: Yes Hx Chest Pain: Yes (triple bypass denies ID) Hx Irregular Heartbeat: Yes (afib) Hx Palpitations: Yes Comment:: stent placed - NEURO Hx Neuro Disorders: No - GI Hx GI Disorders: No - Hx Genitourinary Disorders: No - ENDOCRINE Hx Endocrine Disorders: No - MUSCULOSKELETAL Hx Musculoskeletal Disorders: Yes Hx Arthritis: Yes Comment:: gout - PSYCH Hx Psych Problems: No - HEMATOLOGY/ONCOLOGY Hx Hematology/Oncology Disorders: Yes Hx Cancer: Yes (Colon) Hx Chemotherapy: Yes Hx Radiation Therapy: Yes Family Medical History Hx Heart Disease: Father Hx HTN: Brother/Sister Hx Resp Disorders: Brother/Sister Physical Exam - General General Appearance: Alert, Oriented x3, Cooperative, Moderate distress Limitations: No limitations - Head Head exam: Atraumatic, Normocephalic, Normal inspection Head exam detail: negative: Abrasion, Contusion, Copeland's sign, General tenderness, Hematoma, Laceration - Eye Eye exam: Normal appearance. negative: Conjunctival injection, Periorbital swelling, Periorbital tenderness, Scleral icterus - ENT Ear exam: negative: Auricular hematoma, Auricular trauma Nasal Exam: negative: Active bleeding, Discharge, Dried blood, Foreign body Mouth exam: negative: Drooling, Laceration, Muffled voice, Tongue elevation - Neck Neck exam: Normal inspection. negative: Meningismus, Tenderness - Respiratory Respiratory exam: Normal lung sounds bilaterally. negative: Rales, Respiratory distress, Rhonchi, Stridor - Cardiovascular Cardiovascular Exam: Normal rhythm, Normal heart sounds, Tachycardia - GI/Abdominal GI/Abdominal exam: Soft. negative: Rebound, Rigid, Tenderness - Rectal Rectal exam: Deferred - exam: Deferred - Extremities Extremities exam: Normal inspection. negative: Calf tenderness, Pedal edema, Tenderness - Back Back exam: Denies: CVA tenderness (R), CVA tenderness (L) - Neurological Neurological exam: Alert, Normal gait, Oriented X3 - Psychiatric Psychiatric exam: Normal affect, Normal mood - Skin Skin exam: Normal color. negative: Abrasion Type of lesion: negative: abrasion Course - Reevaluation(s) Reevaluation #1: 03/01/18 02:18 EKG: SVT 149 RBBB, rate related ST-T wave changes Adenosine 12 mg given IV with conversion to NSR. Repat EKG: NSR 86 RBBB, no acute ST-T wave changes Previous laboratory studies and records were reviewed from last night's visit, treated for SVT and refused further cardiac evaluation for his chest discomfort symptoms. Will obtain laboratory studies and reassess. Reevaluation #2: 03/01/18 02:37 Laboratory studies were reviewed, GFR 48, labs are otherwise grossly unremarkable for an acute process. Patient was updated on all results, again discussed transfer to [facility] for further cardiac evaluation, again the patient has refused stating "I just don't like that hospital, they let me bleed in my mouth after my heart stent". Following discussion with the patient regarding transfer, patient reports that they want to leave AMA at this time. Risks of , permanent impairment, or worsening of their current condition and missed heart attack were discussed as well as the benefit of further cardiac evaluation by his cardiology group. Patient verbalizes understanding of all risks and benefits, desires to leave AMA despite these risks. Based on my examination, the patient is alert, oriented, and answers all questions appropriately. Patient appears to have the capacity to make rational decisions based on my examination. Patient was encouraged to return to the ED immediately if they change their mind about treatment and want to be re-evaluated. Patient was gain instructed to take his Cardizem as prescribed and to call Dr. Falcon's office Friday. Patient verbalizes understanding of all instructions. Medical Decision Making - Lab Data Result diagrams: 03/01/18 02:08 03/01/18 02:08 Critical Care Time Critical Care Time: Yes Total Critical Care Time: 35 Critical Care Time: Diagnosis and cardioversion of SVT, evaluation for ACS, multiple EKG interpretations. Disposition Disposition: Discharge Clinical Impression: SVT (supraventricular tachycardia) Chest pain Qualifiers: Chest pain type: unspecified Qualified Code(s): R07.9 - Chest pain, unspecified Disposition: Against Medical Advice Condition: (2) Stable Instructions: Chest Pain (ED) Additional Instructions: Return to ED if your symptoms worsen or if you have any concerns. Take your Cardizem as prescribed. Follow-up with Dr. Falcon's office Friday as directed. Forms: Patient Portal Access Time of Disposition: 02:49 Quality - Quality Measures Quality Measures: N/A - Blood Pressure Screening Does Patient Have Any of the Following: No Blood Pressure Classification: Pre-Hypertensive BP Reading Systolic Measurement: 137 Diastolic Measurement: 87 Screening for High Blood Pressure: < Pre-Hypertensive BP, F/U Documented > [ G8950] Pre-Hypertensive Follow-up Interventions: Referral to alternative/primary care provider.
[2018-03-01 02:16] LABS: BASO % 0.5 % (0-6); EOS % 7.6 % (0-6); GRAN % 50.7 % (47-80); HEMATOCRIT 40.7 % (42.0-52.0); HEMOGLOBIN 13.5 gm/dl (14.0-18.0); LYMPH % 29.1 % (16-45); MEAN CELL VOLUME 94.4 fl (81-97); MEAN CORPUSCULAR HEMOGLOBIN 31.3 pg (27-33); MEAN CORPUSCULAR HGB CONC 33.2 g/dl (32-36); MEAN PLATELET VOLUME 8.9 fl (7.4-10.4); MONO % 12.1 % (0-9); PLATELET COUNT 217 K/uL (130-400); RED BLOOD COUNT 4.31 M/uL (4.40-5.70); RED CELL DISTRIBUTION WIDTH 13.2 % (11.5-14.5); WHITE BLOOD COUNT W/O DIFF 8.1 K/uL (4.2-12.2)
[2018-03-01 02:26] LABS: BLOOD UREA NITROGEN 27 mg/dL (8-23); CREATININE 1.5 mg/dL (0.7-1.2); EST GLOMERULAR FILTRATION RATE 48 mL/min
[2018-03-01 02:27] LABS: TOTAL PROTEIN 7.4 g/dL (6.6-8.7)
[2018-03-01 02:29] LABS: GLUCOSE,RANDOM 119 mg/dL (74-109)
[2018-03-01 02:32] LABS: ALB/GLOB RATIO 1.3 (1.1-1.8); ALBUMIN 4.2 g/dL (4.0-5.0); ALKALINE PHOSPHATASE 59 U/L (40-129); ALT/SGPT 20 U/L (<41); AST/SGOT 21 U/L (10.0-50.0)
== END 2018-03-01 02:55 | disposition left against medical advice (07) ==
LOC: ER 01:57
DX: I47.1 Supraventricular tachycardia (principal); R07.2 Precordial pain; I10 Essential (primary) hypertension; Z87.891 Personal history of nicotine dependence; Z95.5 Presence of coronary angioplasty implant and graft; Z95.1 Presence of aortocoronary bypass graft
CPT/HCPCS: 99291 ×2; 96374; 85025; 80053; 84484; 93005; 93010; J0150

== ENCOUNTER 2018-11-05 14:13 | Emergency (ER) | payer BC ==
[2018-11-05] MEDS ORDERED: ADENOSINE 12 MG/4 ML VIAL IVP ONE (14:34)
--- NOTE | 2018-11-05 14:39 | Emergency Department Record ---
History of Present Illness - General Chief Complaint: Rapid heartbeat Stated Complaint: RAPID HEARTBEAT Time Seen by Provider: 11/05/18 14:31 Source: Patient Mode of Arrival: Ambulatory Limitations: No limitations - History of Present Illness Initial Comments: the patient is here due to the acute onset of his heart racing which began about 15 minutes ago. He has a LONG hx of SVT like this and has been to the ER multiple times for it. The patient did have mild pain at the onset but that is normal for him. He denies any recent illnesses or injuries and states he has been taking his medicines. MD Complaint: Palpitations, Rapid heart beat Onset/Timin -: Minutes(s) Arrythmia History: Atrial fibrillation Treatments Prior to Arrival: Calcium channel dora - Related Data Previous Rx's Medication Instructions Recorded Diltiazem HCl [Cardizem Cd] 120 mg PO DAILY 30 Days #30 01/15/18 cap.er.24h Allergies Allergy/AdvReac Type Severity Reaction Status Date / Time No Known Drug Allergies Allergy Verified 11/05/18 14:20 Travel Screening - Travel/Exposure Within Last 30 Days Have you traveled within the last 30 days?: No - Travel/Exposure Within Last Year Have you traveled outside the [place] in the last year?: No - Additonal Travel Details Have you been exposed to anyone with a communicable illness?: No Review of Systems Constitutional: Denies: Chills, Fever Eyes: Denies: Eye discharge ENT: Denies: Congestion Respiratory: Denies: Cough, Dyspnea Past Medical History - SOCIAL HISTORY Smoking Status: Former smoker Alcohol Use: None Drug Use: None - RESPIRATORY Hx Respiratory Disorders: Yes Hx Bronchitis: Yes - CARDIOVASCULAR Hx Cardio Disorders: Yes Hx Cardiac Cath: Yes Hx Chest Pain: Yes (triple bypass denies [place]) Hx Irregular Heartbeat: Yes (afib) Hx Palpitations: Yes Comment:: stent placed - NEURO Hx Neuro Disorders: No - GI Hx GI Disorders: No - Hx Genitourinary Disorders: No - ENDOCRINE Hx Endocrine Disorders: No - MUSCULOSKELETAL Hx Musculoskeletal Disorders: Yes Hx Arthritis: Yes Comment:: gout - PSYCH Hx Psych Problems: No - HEMATOLOGY/ONCOLOGY Hx Hematology/Oncology Disorders: Yes Hx Cancer: Yes (Colon) Hx Chemotherapy: Yes Hx Radiation Therapy: Yes Family Medical History Any Significant Family History?: No Hx Heart Disease: Father Hx HTN: Brother/Sister Hx Resp Disorders: Brother/Sister Physical Exam - General General Appearance: Alert, Oriented x3, Cooperative, No acute distress - Head Head exam: Atraumatic, Normocephalic, Normal inspection - Eye Eye exam: Normal appearance, PERRL - ENT Throat exam: Normal inspection. negative: Tonsillar erythema, Tonsillar exudate - Neck Neck exam: Normal inspection, Full ROM. negative: Tenderness - Respiratory Respiratory exam: Normal lung sounds bilaterally. negative: Respiratory distress - Cardiovascular Cardiovascular Exam: Normal rhythm, Tachycardia. negative: Regular rate - GI/Abdominal GI/Abdominal exam: Soft, Normal bowel sounds. negative: Tenderness - Extremities Extremities exam: Normal inspection, Full ROM, Normal capillary refill. negative: Tenderness - Neurological Neurological exam: Alert, Normal gait. negative: Abnormal gait, Motor sensory deficit - Psychiatric Psychiatric exam: negative: Anxious Course Vital Signs 11/05/18 14:18 Temperature 97.6 F Pulse Rate 155 H Respiratory 20 Rate Blood Pressure 156/103 Pulse Ox 98 - Reevaluation(s) Reevaluation #1: The patient converted easily with a single dose of Adenosine 12 mg. His EKG is now NSR at a rate of 80 with a RBBB which is normal for him. Now the patient is telling me he has not taken his Cardizem in weeks. He does have a hx of medication noncompliance. 11/05/18 14:54 Reevaluation #2: The patient is doing very well at this time. He denies any pain, SOB, or palpitations. I did recommend a short stay admission for monitoring but the patient is refusing. I did explain to the patient the risks of leaving are that the patient could go home and have an [place], stroke, become disabled and even . The patient fully understands and accepts the risks. He is intructed to take his Cardizem and to see his Rail Filler BOZENA. 11/05/18 15:25 Medical Decision Making - Lab Data Result diagrams: 11/05/18 14:25 11/05/18 14:25 Disposition Disposition: Discharge Clinical Impression: SVT (supraventricular tachycardia) Disposition: Home, Self-Care Condition: (2) Stable Instructions: Heart Palpitations (ED) Additional Instructions: Please take your medicines as directed and see your Rail Filler BOZENA. Please return to the ER for any worsening symptoms. Forms: Patient Portal Access Time of Disposition: 15:27 Quality - Quality Measures Quality Measures: N/A - Blood Pressure Screening View Details: Yes Does Patient Have Any of the Following: No Blood Pressure Classification: Hypertensive Reading Systolic Measurement: 156 Diastolic Measurement: 103 Screening for High Blood Pressure: < First Hypertensive BP, F/U Documented > [G8950] First Hypertensive Follow-up Interventions: Referral to alternative/primary care provider.
[2018-11-05 15:03] LABS: ABSOLUTE NEUTROPHIL COUNT 5.67; BASO % 0.4 % (0-6); EOS % 6.5 % (0-6); HEMOGLOBIN 15.3 gm/dl (14.0-18.0); LYMPH % 21.5 % (16-45); MEAN CELL VOLUME 94.1 fl (81-97); MEAN PLATELET VOLUME 9.6 fl (7.4-10.4); MONO % 11.6 % (0-9); PLATELET COUNT 265 K/uL (130-400); RED BLOOD COUNT 4.78 M/uL (4.40-5.70); RED CELL DISTRIBUTION WIDTH 12.9 % (11.5-14.5); WHITE BLOOD COUNT W/O DIFF 9.5 K/uL (4.2-12.2)
[2018-11-05 15:16] LABS: CREATININE 1.4 mg/dL (0.7-1.2)
[2018-11-05 15:17] LABS: BILIRUBIN,TOTAL 0.4 mg/dL (0.2-1.0); TOTAL PROTEIN 7.9 g/dL (6.6-8.7)
[2018-11-05 15:22] LABS: ALB/GLOB RATIO 1.3 (1.1-1.8); ALBUMIN 4.4 g/dL (4.0-5.0)
[2018-11-05 15:32] LABS: THYROID STIMULATING HORMONE 3.87 uIU/mL (0.270-4.20)
== END 2018-11-05 15:48 | disposition home or self-care (01) ==
LOC: ER 14:13
DX: I47.1 Supraventricular tachycardia (principal); I48.91 Unspecified atrial fibrillation; I25.2 Old myocardial infarction; Z87.891 Personal history of nicotine dependence
CPT/HCPCS: 99284 ×2; 96374; 85025; 80053; 84443; 93005; 93010; J0153

== ENCOUNTER 2019-02-08 16:56 | Emergency (ER) | payer BC ==
--- NOTE | 2019-02-08 17:16 | Emergency Department Record ---
History of Present Illness - General Source: Patient Mode of Arrival: Ambulatory Limitations: No limitations - History of Present Illness Initial Comments: 78 yo male presents with chest pain that is now resolved. She states it was central without radiation. He has been having chest pain on and off for about 3 weeks. Today it lasted about 20 to thirty minutes. He states he was nauseated and was sweating. He was not particularly short of breath. No back pain, neck pain, shoulder pain. No abdominal pain. He states he has CAD with a stent being placed at [facility] in April. He took aspirin during the pain prior to w hen it resolved. He had a stent last place in August of 2012. He is a smoker, HTN, elevated cholesterol, mild renal insufficiency. MD Complaint: Chest pain Onset/Timin -: Minutes(s) Onset: During rest Pain Location: Substernal Pain Radiation: None Severity: Moderate Severity scale (1-10): 8 Quality: Aching Consistency: Now resolved Improves With: Nothing Worsens With: Nothing Context: Other Anginal Symptoms: Diaphoresis, Nausea Treatments Prior to Arrival: Aspirin <NATALIA CAO - Last Filed: 02/08/19 19:15> <Mirtha Vickers - Last Filed: 02/08/19 20:50> - General Chief Complaint: Chest Pain Stated Complaint: CHEST PAIN Time Seen by Provider: 02/08/19 17:07 - Related Data Previous Rx's Medication Instructions Recorded Diltiazem HCl [Cardizem Cd] 120 mg PO DAILY 30 Days #30 01/15/18 cap.er.24h Clopidogrel Bisulfate [Plavix] 75 mg PO DAILY #30 tab 02/08/19 Allergies Allergy/AdvReac Type Severity Reaction Status Date / Time No Known Drug Allergies Allergy Verified 02/08/19 17:07 Travel Screening - Travel/Exposure Within Last 30 Days Have you traveled within the last 30 days?: No - Travel/Exposure Within Last Year Have you traveled outside the [place] in the last year?: No - Additonal Travel Details Have you been exposed to anyone with a communicable illness?: No <NATALIA CAO - Last Filed: 02/08/19 19:15> Review of Systems Constitutional: Denies: Chills, Fever, Malaise, Weakness Eyes: Denies: Eye discharge ENT: Denies: Congestion, Throat pain Respiratory: Denies: Cough, Dyspnea, Hemoptysis, Stridor, Wheezes Cardiovascular: Reports: Chest pain. Denies: Dyspnea on exertion, Edema, Palpit ations, Syncope Endocrine: Reports: Fatigue Gastrointestinal: Denies: Abdominal pain, Diarrhea, Nausea, Vomiting Genitourinary: Denies: Dysuria, Frequency, Hematuria Musculoskeletal: Denies: Arthralgia, Back pain, Myalgia Skin: Denies: Bruising, Change in color, Rash Neurological: Denies: Headache, Numbness, Weakness Psychiatric: Denies: Anxiety Hematological/Lymphatic: Denies: Blood Clots, Easy bleeding, Easy bruising <NATALIA CAO Last Filed: 02/08/19 19:15> Past Medical History - SOCIAL HISTORY Smoking Status: Former smoker Alcohol Use: None Drug Use: None - RESPIRATORY Hx Respiratory Disorders: Yes Hx Bronchitis: Yes - CARDIOVASCULAR Hx Cardio Disorders: Yes Hx Cardiac Cath: Yes Hx Chest Pain: Yes (triple bypass denies [place]) Hx Irregular Heartbeat: Yes (afib) Hx Palpitations: Yes Comment:: stent placed - NEURO Hx Neuro Disorders: No - GI Hx GI Disorders: No - Hx Genitourinary Disorders: No - ENDOCRINE Hx Endocrine Disorders: No - MUSCULOSKELETAL Hx Musculoskeletal Disorders: Yes Hx Arthritis: Yes Comment:: gout - PSYCH Hx Psych Problems: No - HEMATOLOGY/ONCOLOGY Hx Hematology/Oncology Disorders: Yes Hx Cancer: Yes (Colon) Hx Chemotherapy: Yes Hx Radiation Therapy: Yes <NATALIA CAO Last Filed: 02/08/19 19:15> Family Medical History Any Significant Family History?: No Hx Heart Disease: Father Hx HTN: Brother/Sister Hx Resp Disorders: Brother/Sister <NATALIA CAO Last Filed: 02/08/19 19:15> Physical Exam - General General Appearance: Alert, Oriented x3, Cooperative, No acute distress Limitations: No limitations - Head Head exam: Atraumatic, Normal inspection - Eye Eye exam: Normal appearance, PERRL. negative: Conjunctival injection, Scleral icterus - ENT ENT exam: Normal exam, Mucous membranes moist Ear exam: Normal external inspection Nasal Exam: Normal inspection Mouth exam: Normal external inspection - Neck Neck exam: Normal inspection - Respiratory Respiratory exam: Normal lung sounds bilaterally. negative: Accessory muscle use, Decreased breath sounds, Prolonged expiratory, Respiratory distress, Rhonchi, Stridor, Wheezes - Cardiovascular Cardiovascular Exam: Regular rate, Normal rhythm, Normal heart sounds. negative: Diastolic murmur, Systolic murmur Peripheral Pulses: 2+: Radial (R), Radial (L) - GI/Abdominal GI/Abdominal exam: Soft. negative: Distended, Guarding, Tenderness - Rectal Rectal exam: Deferred - exam: Deferred - Extremities Extremities exam: Normal inspection, Full ROM. negative: Calf tenderness, Pedal edema, Tenderness - Back Back exam: Denies: CVA tenderness (R), CVA tenderness (L) - Neurological Neurological exam: Alert, Oriented X3 - Psychiatric Psychiatric exam: Normal affect, Normal mood - Skin Skin exam: Dry, Intact, Normal color, Warm <NATALIA CAO - Last Filed: 02/08/19 19:15> Course Vital Signs 02/08/19 16:58 Pulse Rate 93 H Respiratory 18 Rate Blood Pressure 195/110 Pulse Ox 93 L - Reevaluation(s) Reevaluation #1: The patient took aspirin prior to arrival He is pain free currently EKG #1: 16:54 Rate: 96 Rhythm: sinus [place]: N Intervals: Qtc 501, RBBB ST segments: NS ST depression, RBBB Prior: similar to 11/05/18 02/08/19 17:21 02/08/19 17:45 The labs were reviewed The CBC is normal The CR is baseline at 1.5 The Troponin is normal The BNP is 299 02/08/19 17:59 EMR reviewed 318 LM patent, LAD severe diffuse disease, LCx 80%, RCA 100%, SVG to RM patent, SVG to RCA very large graft, eccentric 60-70% mid segment but still very patent vessel due to large diameter PCI of the LCx OM [place] to LAD patent 02/08/19 18:35 I discussed the results with the patient. With his history I recommended admission with transfer to [facility] where his cardiac care has been. He is declining at this time transfer. I discussed option of rechecking his cardiac enzyme at 8:30pm. I did discuss that he was still have to sign out AMA given his risk profile for CAD. He understands and agrees with this option. 02/08/19 19:00 At shift turn over the case was turned over to Dr Vickers to review the second set of enzymes. He will sign out AMA if leaving after the second set of enzymes. He does still remain chest pain free CXR reviewed. Hyperinflation, chronic stable changes He has been out of his Plavix for 2 weeks. Rx provided. 02/08/19 19:16 <NATALIA CAO - Last Filed: 02/08/19 19:15> Vital Signs 02/08/19 02/08/19 02/08/19 16:58 17:04 17:21 Temperature 98.5 F Pulse Rate 93 H Pulse Rate [ 90 Pulse Ox Probe] Respiratory 18 18 Rate Blood Pressure 195/110 Blood Pressure 163/101 [Right Arm] Pulse Ox 93 L 95 02/08/19 02/08/19 02/08/19 17:39 18:00 18:30 Temperature Pulse Rate Pulse Rate [ 80 74 79 Pulse Ox Probe] Respiratory 16 16 16 Rate Blood Pressure Blood Pressure 152/90 141/82 166/83 [Right Arm] Pulse Ox 95 95 96 02/08/19 20:29 Temperature Pulse Rate Pulse Rate [ 73 Pulse Ox Probe] Respiratory 17 Rate Blood Pressure Blood Pressure 122/55 [Right Arm] Pulse Ox - Reevaluation(s) Reevaluation #2: 02/08/19 20:48 pt refusing to stay for results of repeat troponin. leaving AMA <Mirtha Vickers - Last Filed: 02/08/19 20:50> Medical Decision Making - Lab Data Result diagrams: 02/08/19 17:05 02/08/19 17:05 <NATALIA CAO - Last Filed: 02/08/19 19:15> - Lab Data Result diagrams: 02/08/19 17:05 02/08/19 17:05 Lab Results 02/08/19 02/08/19 02/08/19 Range/Units 17:05 17:05 17:05 WBC 10.7 (4.2-12.2) K/uL RBC 4.42 (4.40-5.70) M/uL Hgb 14.1 (14.0-18.0) gm/dl Hct 41.8 L (42.0-52.0) % MCV 94.6 (81-97) fl MCH 31.9 (27-33) pg MCHC 33.7 (32-36) g/dl RDW 13.0 (11.5-14.5) % Plt Count 234 (130-400) K/uL MPV 9.4 (7.4-10.4) fl Neutrophils % 61.0 (47-80) % Eosinophils % Not Reportable Basophils % Not Reportable Absolute Neutrophils Not Reportable Lymphocytes 25.0 (16-45) % Monocytes 12.0 H (0-9) % Platelet Estimate Normal (NORMAL) RBC Morphology Normal Eosinophil Count 2.0 (0-6) % PT 10.2 (9.5-12.1) SECONDS INR 1.0 APTT 29.2 (24.5-39.1) SECONDS Sodium 137 (136-145) mmol/L Potassium 4.2 (3.4-4.5) mmol/L Chloride 103 (98-107) mmol/L Carbon Dioxide 22.0 (22-29) mmol/L Anion Gap 12.0 (7-16) BUN 29 H (8-23) mg/dL Creatinine 1.5 H (0.7-1.2) mg/dL Estimated GFR 48 mL/min Random Glucose 111 H (74-109) mg/dL Calcium 9.2 (8.8-10.2) mg/dL Total Bilirubin 0.40 (0.2-1.0) mg/dL AST 26 (10.0-50.0) U/L ALT 26 (<41) U/L Alkaline Phosphatase 76 (40-129) U/L Troponin T < 0.010 (0-0.010) ng/mL NT-Pro-B Natriuret Pep 299.10 (<450) pg/mL Total Protein 7.8 (6.6-8.7) g/dL Albumin 4.5 (4.0-5.0) g/dL Globulin 3.3 (1.4-4.8) gm/dL Albumin/Globulin Ratio 1.4 (1.1-1.8) <Mirtha Vickers - Last Filed: 02/08/19 20:50> Disposition Disposition: Discharge <NATALIA CAO - Last Filed: 02/08/19 19:15> Disposition: Other <Mirtha Vickers - Last Filed: 02/08/19 20:50> Clinical Impression: Chest pain Qualifiers: Chest pain type: unspecified Qualified Code(s): R07.9 - Chest pain, unspecified Disposition: Against Medical Advice Condition: (1) Good Instructions: Chest Pain (ED), Against Medical Advice (ED) Additional Instructions: Call your doctor tomorrow and your nuclear medical technologist for close follow up Return if you have any return of chest pain You are signing out AMA this evening but may return or be seen anytime if you have any return of symptoms. Prescriptions: Clopidogrel Bisulfate [Plavix] 75 mg PO DAILY #30 tab Forms: Patient Portal Access Quality - Blood Pressure Screening Does Patient Have Any of the Following: No Blood Pressure Classification: Hypertensive Reading Systolic Measurement: 195 Diastolic Measurement: 110 <NATALIA CAO - Last Filed: 02/08/19 19:15> - Quality Measures Quality Measures: N/A - Blood Pressure Screening Does Patient Have Any of the Following: Active Dx of HTN Blood Pressure Classification: Hypertensive Reading Systolic Measurement: 195 Diastolic Measurement: 110 Screening for High Blood Pressure: Patient Exclusion, Hx of HTN [G9744] <Mirtha Vickers - Last Filed: 02/08/19 20:50>
[2019-02-08 17:22] LABS: HEMATOCRIT 41.8 % (42.0-52.0); HEMOGLOBIN 14.1 gm/dl (14.0-18.0); MEAN CELL VOLUME 94.6 fl (81-97); MEAN CORPUSCULAR HEMOGLOBIN 31.9 pg (27-33); MEAN CORPUSCULAR HGB CONC 33.7 g/dl (32-36); MEAN PLATELET VOLUME 9.4 fl (7.4-10.4); PLATELET COUNT 234 K/uL (130-400); RED BLOOD COUNT 4.42 M/uL (4.40-5.70); WHITE BLOOD COUNT W/O DIFF 10.7 K/uL (4.2-12.2)
[2019-02-08 17:35] LABS: PARTIAL THROMBOPLASTIN TIME 29.2 SECONDS (24.5-39.1); PROTHROMBIN TIME (PATIENT) 10.2 SECONDS (9.5-12.1)
[2019-02-08 17:36] LABS: BLOOD UREA NITROGEN 29 mg/dL (8-23); CREATININE 1.5 mg/dL (0.7-1.2); EST GLOMERULAR FILTRATION RATE 48 mL/min; PLATELET ESTIMATE NORMAL (NORMAL); TOTAL PROTEIN 7.8 g/dL (6.6-8.7)
[2019-02-08 17:38] LABS: GLUCOSE,RANDOM 111 mg/dL (74-109)
[2019-02-08 17:41] LABS: ALB/GLOB RATIO 1.4 (1.1-1.8); ALBUMIN 4.5 g/dL (4.0-5.0); ALKALINE PHOSPHATASE 76 U/L (40-129); ALT/SGPT 26 U/L (<41); AST/SGOT 26 U/L (10.0-50.0)
--- NOTE | 2019-02-09 07:57 | RADIOLOGY REPORT ---
EXAM: CHEST, TWO VIEWS HISTORY: CHEST PAIN. TECHNIQUE: PA and lateral views of the chest were obtained. Comparison: Two view chest 09/30/17. FINDINGS: Postop sternotomy as before. Stable heart size. Calcification and torsion of the aorta again evident. The lungs appear somewhat hyperinflated suggesting underlying COPD. There is probably some mild fibrosis in the lungs as well. No definite acute alveolar infiltrate is seen and no definite pleural effusion or pneumothorax evident. Old rib fractures laterally in the right fourth and fifth ribs. IMPRESSION: 1. HYPERINFLATION CONSISTENT WITH COPD. THERE IS PROBABLY SOME FIBROSIS IN THE LUNGS WELL, HOWEVER, NO DEFINITE ACUTE INFILTRATE SEEN. 2. POSTOP STERNOTOMY BEFORE. 3. A COUPLE OLD RIGHT RIB FRACTURES BEFORE. JOB [facility]BER: [id number] [facility]
== END 2019-02-08 20:55 | disposition left against medical advice (07) ==
LOC: ER 16:56
DX: R07.2 Precordial pain (principal); R11.0 Nausea; N28.9 Disorder of kidney and ureter, unspecified; I10 Essential (primary) hypertension; I25.10 Atherosclerotic heart disease of native coronary artery without angina pectoris; I48.91 Unspecified atrial fibrillation; Z87.891 Personal history of nicotine dependence; Z85.038 Personal history of other malignant neoplasm of large intestine
CPT/HCPCS: 71046; 80053; 83880; 84484; 85027; 85610; 85730; 93005; 93010; 99285

== ENCOUNTER 2019-04-01 08:27 | Emergency (ER) | payer BC ==
[2019-04-01] MEDS ORDERED: ASPIRIN 81 MG CHEWABLE TABLET PO ONE (08:52)
[2019-04-01 09:08] LABS: ABSOLUTE NEUTROPHIL COUNT 6.13; BASO % 0.5 % (0-6); EOS % 6.2 % (0-6); GRAN % 70.2 % (47-80); HEMATOCRIT 43.1 % (42.0-52.0); HEMOGLOBIN 14.4 gm/dl (14.0-18.0); LYMPH % 13.7 % (16-45); MEAN CELL VOLUME 94.5 fl (81-97); MEAN CORPUSCULAR HEMOGLOBIN 31.6 pg (27-33); MEAN CORPUSCULAR HGB CONC 33.4 g/dl (32-36); MEAN PLATELET VOLUME 9.6 fl (7.4-10.4); MONO % 9.4 % (0-9); PLATELET COUNT 233 K/uL (130-400); RED BLOOD COUNT 4.56 M/uL (4.40-5.70); RED CELL DISTRIBUTION WIDTH 12.7 % (11.5-14.5); WHITE BLOOD COUNT W/O DIFF 8.7 K/uL (4.2-12.2)
[2019-04-01 09:20] LABS: BLOOD UREA NITROGEN 22 mg/dL (8-23)
[2019-04-01 09:21] LABS: CREATININE 1.3 mg/dL (0.7-1.2); EST GLOMERULAR FILTRATION RATE 57 mL/min; TOTAL PROTEIN 7.6 g/dL (6.6-8.7)
[2019-04-01 09:23] LABS: GLUCOSE,RANDOM 124 mg/dL (74-109)
[2019-04-01 09:24] LABS: PARTIAL THROMBOPLASTIN TIME 29.8 SECONDS (24.5-39.1)
[2019-04-01 09:26] LABS: ALB/GLOB RATIO 1.4 (1.1-1.8); ALBUMIN 4.4 g/dL (4.0-5.0); ALKALINE PHOSPHATASE 67 U/L (40-129); ALT/SGPT 20 U/L (<41); AST/SGOT 20 U/L (10.0-50.0); CREATINE PHOSPHOKINASE 151 U/L (39-308)
[2019-04-01 09:28] LABS: CKMB 2.7 ng/mL (<6.73)
[2019-04-01] MEDS ORDERED: 0.9 % SODIUM CHLORIDE 1,000 ML BAG IV ONE (09:30)
--- NOTE | 2019-04-01 09:36 | Emergency Department Record ---
History of Present Illness - General Chief Complaint: Chest Pain Stated Complaint: CHEST DISCOMFORT Time Seen by Provider: 04/01/19 08:42 Source: Patient Mode of Arrival: Ambulatory Limitations: No limitations - History of Present Illness Initial Comments: pt c/o r sided cp that gets worse with walking and gets better with rest. he has had this before but it is getting worse. last night walking to his car he had to stop 3 times to rest until the pain would let up. he had a stent placed 1 yr ago. he is painfree now . he states also if he eats greasy food it makes his chest hurt. he denies nausea or ruq pain. pt took 3 baby asa prior to coming in MD Complaint: Chest pain Onset/Timin -: Hour(s) Onset: After eating, During exertion Pain Location: Right chest Pain Radiation: None Severity: Moderate Quality: Sharp Consistency: Intermittent Improves With: Rest Worsens With: Exertion Context: Other (pt doesnt take prescribed meds) Treatments Prior to Arrival: Aspirin - Related Data Previous Rx's Medication Instructions Recorded Diltiazem HCl [Cardizem Cd] 120 mg PO DAILY 30 Days #30 01/15/18 cap.er.24h Clopidogrel Bisulfate [Plavix] 75 mg PO DAILY #30 tab 02/08/19 Allergies Allergy/AdvReac Type Severity Reaction Status Date / Time No Known Drug Allergies Allergy Verified 02/08/19 17:07 Travel Screening - Travel/Exposure Within Last 30 Days Have you traveled within the last 30 days?: No - Travel/Exposure Within Last Year Have you traveled outside the [place] in the last year?: No - Additonal Travel Details Have you been exposed to anyone with a communicable illness?: No - Travel Symptoms Symptom Screening: None Review of Systems Reviewed: No additional complaints except as noted below Constitutional: Reports: As per HPI. Denies: Chills, Fever, Malaise, Night swea ts, Weakness, Weight change Eyes: Reports: As per HPI. Denies: Eye discharge, Eye pain, Photophobia, Vision change ENT: Reports: As per HPI. Denies: Congestion, Dental pain, Ear pain, Epistaxis, Hearing loss, Throat pain Respiratory: Reports: As per HPI. Denies: Cough, Dyspnea, Hemoptysis, Stridor, Wheezes Cardiovascular: Reports: As per HPI, Chest pain. Denies: Arrhythmia, Dyspnea on exertion, Edema, Murmurs, Orthopnea, Palpitations, Paroxysmal nocturnal dyspnea, Rheumatic Fever, Syncope Endocrine: Reports: As per HPI. Denies: Fatigue, Heat or cold intolerance, P olydipsia, Polyuria Gastrointestinal: Reports: As per HPI. Denies: Abdominal pain, Constipation, Diarrhea, Hematemesis, Hematochezia, Melena, Nausea, Vomiting Genitourinary: Reports: As per HPI. Denies: Dysuria, Frequency, Hematuria, Incontinence, Retention, Testicular pain, Testicular mass, Urgency Musculoskeletal: Reports: As per HPI. Denies: Arthralgia, Back pain, Gout, Joint swelling, Myalgia, Neck pain Skin: Reports: As per HPI. Denies: Bruising, Change in color, Change in hair/nails, Lesions, Pruritus, Rash Neurological: Reports: As per HPI. Denies: Abnormal gait, Confusion, Headache, Numbness, Paresthesias, Seizure, Tingling, Tremors, Vertigo, Weakness Psychiatric: Reports: As per HPI. Denies: Anxiety, Auditory hallucinations, Depression, Homicidal thoughts, Suicidal thoughts, Visual hallucinations Hematological/Lymphatic: Reports: As per HPI. Denies: Anemia, Blood Clots, Easy bleeding, Easy bruising, Swollen glands Past Medical History - SOCIAL HISTORY Smoking Status: Former smoker Alcohol Use: None Drug Use: None - RESPIRATORY Hx Respiratory Disorders: Yes Hx Bronchitis: Yes - CARDIOVASCULAR Hx Cardio Disorders: Yes Hx Cardiac Cath: Yes Hx Chest Pain: Yes (triple bypass denies [place]) Hx Irregular Heartbeat: Yes (afib) Hx Palpitations: Yes Comment:: stent placed - NEURO Hx Neuro Disorders: No - GI Hx GI Disorders: No - Hx Genitourinary Disorders: No - ENDOCRINE Hx Endocrine Disorders: No - MUSCULOSKELETAL Hx Musculoskeletal Disorders: Yes Hx Arthritis: Yes Comment:: gout - PSYCH Hx Psych Problems: No - HEMATOLOGY/ONCOLOGY Hx Hematology/Oncology Disorders: Yes Hx Cancer: Yes (Colon) Hx Chemotherapy: Yes Hx Radiation Therapy: Yes Family Medical History Any Significant Family History?: No Hx Heart Disease: Father Hx HTN: Brother/Sister Hx Resp Disorders: Brother/Sister Physical Exam - General General Appearance: Alert, Oriented x3, Cooperative, No acute distress - Head Head exam: Normal inspection - Eye Eye exam: Normal appearance, PERRL, EOMI Pupils: Normal accommodation - ENT ENT exam: Normal exam, Mucous membranes moist, Normal external ear exam, Normal orophraynx Ear exam: Normal external inspection. negative: External canal tenderness Nasal Exam: Normal inspection. negative: Discharge, Sinus tenderness Mouth exam: Normal external inspection, Tongue normal Teeth exam: Normal inspection. negative: Dental caries Throat exam: Normal inspection. negative: Tonsillar erythema, Tonsillar exudate - Neck Neck exam: Normal inspection, Full ROM. negative: Tenderness - Respiratory Respiratory exam: Normal lung sounds bilaterally. negative: Respiratory distress - Cardiovascular Cardiovascular Exam: Regular rate, Normal rhythm, Normal heart sounds - GI/Abdominal GI/Abdominal exam: Soft, Normal bowel sounds. negative: Tenderness - Rectal Rectal exam: Deferred - exam: Deferred - Extremities Extremities exam: Normal inspection, Full ROM, Normal capillary refill. negative: Tenderness - Back Back exam: Reports: Normal inspection, Full ROM. Denies: Muscle spasm, Rash noted, Tenderness - Neurological Neurological exam: Alert, CN II-XII intact, Normal gait, Oriented X3 - Psychiatric Psychiatric exam: Normal affect, Normal mood - Skin Skin exam: Dry, Intact, Normal color, Warm Course Vital Signs 04/01/19 08:31 Temperature 99.3 F Pulse Rate 78 Respiratory 20 Rate Blood Pressure 156/103 Pulse Ox 92 L - Reevaluation(s) Reevaluation #1: 04/01/19 11:32 pt did well entire stay. no return of pain while resting here. pt wants to go to [facility]. he had his bypass there. Medical Decision Making - Lab Data Result diagrams: 04/01/19 08:40 04/01/19 08:40 Lab Results 04/01/19 04/01/19 04/01/19 Range/Units 08:40 08:40 08:40 WBC 8.7 (4.2-12.2) K/uL RBC 4.56 (4.40-5.70) M/uL Hgb 14.4 (14.0-18.0) gm/dl Hct 43.1 (42.0-52.0) % MCV 94.5 (81-97) fl MCH 31.6 (27-33) pg MCHC 33.4 (32-36) g/dl RDW 12.7 (11.5-14.5) % Plt Count 233 (130-400) K/uL MPV 9.6 (7.4-10.4) fl Gran % 70.2 (47-80) % Lymphocytes % 13.7 L (16-45) % Monocytes % 9.4 H (0-9) % Eosinophils % 6.2 H (0-6) % Basophils % 0.5 (0-6) % Absolute Neutrophils 6.13 APTT 29.8 (24.5-39.1) SECONDS D-Dimer 0.99 H (0-0.59) mg/L FEU Sodium 137 (136-145) mmol/L Potassium 4.1 (3.4-4.5) mmol/L Chloride 98 (98-107) mmol/L Carbon Dioxide 25.0 (22-29) mmol/L Anion Gap 14.0 (7-16) BUN 22 (8-23) mg/dL Creatinine 1.3 H (0.7-1.2) mg/dL Estimated GFR 57 mL/min Random Glucose 124 H (74-109) mg/dL Calcium 9.7 (8.8-10.2) mg/dL Total Bilirubin 0.70 (0.2-1.0) mg/dL AST 20 (10.0-50.0) U/L ALT 20 (<41) U/L Alkaline Phosphatase 67 (40-129) U/L Creatine Kinase 151 (39-308) U/L CK-MB (CK-2) 2.7 (<6.73) ng/mL Troponin T < 0.010 (0-0.010) ng/mL Total Protein 7.6 (6.6-8.7) g/dL Albumin 4.4 (4.0-5.0) g/dL Globulin 3.2 (1.4-4.8) gm/dL Albumin/Globulin Ratio 1.4 (1.1-1.8) Disposition Disposition: Transfer Clinical Impression: Unstable angina Disposition: Acute Care Hospital Transfer Transfer To: [facility] Reason For Transfer: needs cardiology Accepting Physician: dr weber Time Discussed w/Accepting Physician: 11:41 Forms: Patient Portal Access Quality - Quality Measures Quality Measures: N/A - Blood Pressure Screening Does Patient Have Any of the Following: Active Dx of HTN Blood Pressure Classification: Hypertensive Reading Systolic Measurement: 156 Diastolic Measurement: 103 Screening for High Blood Pressure: Patient Exclusion, Hx of HTN [G9744]
--- NOTE | 2019-04-03 15:10 | CT ANGIOGRAM REPORT ---
DATE: 04/01/2019. EXAM: CT ANGIOGRAM OF THE CHEST WITH POSTPROCESSING. HISTORY: CHEST PAIN. TECHNIQUE: Standard CT angiography of the chest was performed with postprocessing following the bolus administration of 100 mL of Omnipaque 350. COMPARISON: Previous chest CT dated 03/05/2013. FINDINGS: The patient is status post coronary artery bypass graft. The heart is enlarged. There is no pericardial effusion. The aorta is normal in caliber. There is moderate breathing motion artifact. This limits the evaluation of the the small subsegmental pulmonary artery branches. There are no visible emboli. Dependent atelectasis is present within both lungs. There are no acute pulmonary infiltrates or effusions. There is no pneumothorax. The chest wall and axillary regions appear normal. There are old, healed fractures of the posterolateral aspects of the right fourth and fifth ribs. There are no acute osseous abnormalities. Degenerative changes are present within the spine. The visualized portions of the upper abdomen are unremarkable. IMPRESSION: 1. MODERATE BREATHING MOTION ARTIFACT. THERE ARE NO VISIBLE PULMONARY EMBOLI. 2. STABLE CARDIOMEGALY AND POSTSURGICAL CHANGES. 3. NO ACUTE INTRATHORACIC PATHOLOGY. Job [facility]: [id number] [facility]
--- NOTE | 2019-04-06 04:53 | CT ANGIOGRAM REPORT ---
EXAM: CT ANGIOGRAM OF THE CHEST WITH POST PROCESSING HISTORY: CHEST PAIN. TECHNIQUE: Standard CT angiography of the chest was performed with post processing following the bolus administration of 100 ml of Omnipaque 350. Comparison: Previous chest CT dated 03/05/13. FINDINGS: The patient is status post CABG. The heart is enlarged. There is no pericardial effusion. The aorta is normal in caliber. There is moderate breathing motion artifact. This limits the evaluation of the small subsegmental pulmonary arterial branches. There are no visible emboli. Dependent atelectasis is present within both lungs. There are no acute pulmonary infiltrates or effusions. There is no pneumothorax. The chest wall and axillary regions appear normal. There are old healed fractures of the posterolateral aspects of the right fourth and fifth ribs. There are no acute osseous abnormalities. Degenerative changes are present within the spine. The visualized portions of the upper abdomen are unremarkable. IMPRESSION: 1. MODERATE BREATHING MOTION ARTIFACT. THERE ARE NO VISIBLE PULMONARY EMBOLI. 2. STABLE CARDIOMEGALY AND POST SURGICAL CHANGES. 3. NO ACUTE INTRATHORACIC PATHOLOGY. [facility]BER: [id number] [facility]
== END 2019-04-01 12:43 | disposition short-term general hospital (02) ==
LOC: ER 08:27
DX: I20.0 Unstable angina (principal); I11.9 Hypertensive heart disease without heart failure; I48.91 Unspecified atrial fibrillation; Z95.1 Presence of aortocoronary bypass graft; Z85.038 Personal history of other malignant neoplasm of large intestine
CPT/HCPCS: 99285 ×2; 82550; 85025; 85730; 82553; 80053; 84484; 85379; 83880; 71275; 93005; 93010; Q9967; J7030

== ENCOUNTER 2019-06-26 14:00 | Emergency (ER) | payer BC ==
[2019-06-26] MEDS ORDERED: DILTIAZEM 25MG/5ML VIAL IV ONE (14:27)
[2019-06-26] MEDS ORDERED: ASPIRIN 81 MG CHEWABLE TABLET PO ONE (14:31)
[2019-06-26 14:45] LABS: ABSOLUTE NEUTROPHIL COUNT 6.57; BASO % 0.3 % (0-6); EOS % 5.9 % (0-6); GRAN % 71.1 % (47-80); HEMATOCRIT 44.1 % (42.0-52.0); HEMOGLOBIN 14.7 gm/dl (14.0-18.0); MEAN CORPUSCULAR HEMOGLOBIN 31.7 pg (27-33); MEAN CORPUSCULAR HGB CONC 33.3 g/dl (32-36); MEAN PLATELET VOLUME 9.3 fl (7.4-10.4); MONO % 8.7 % (0-9); PLATELET COUNT 224 K/uL (130-400); RED BLOOD COUNT 4.64 M/uL (4.40-5.70); RED CELL DISTRIBUTION WIDTH 12.9 % (11.5-14.5); WHITE BLOOD COUNT W/O DIFF 9.2 K/uL (4.2-12.2)
[2019-06-26 14:57] LABS: BLOOD UREA NITROGEN 26 mg/dL (8-23); CREATININE 1.5 mg/dL (0.7-1.2); EST GLOMERULAR FILTRATION RATE 48 mL/min
[2019-06-26 15:00] LABS: GLUCOSE,RANDOM 131 mg/dL (74-109)
[2019-06-26 15:02] LABS: CREATINE PHOSPHOKINASE 150 U/L (39-308)
[2019-06-26 15:04] LABS: CKMB 3.2 ng/mL (<6.73)
[2019-06-26] MEDS ORDERED: CLOPIDOGREL 75MG TABLET PO ONE (16:12)
--- NOTE | 2019-06-26 16:19 | Emergency Department Record ---
History of Present Illness - General Chief Complaint: Rapid heartbeat Stated Complaint: RAPID HEART RATE Time Seen by Provider: 06/26/19 14:18 Source: Patient Mode of Arrival: Ambulatory Limitations: No limitations - History of Present Illness Initial Comments: pt is having cp and rapid hr. he has had this frequently in the past. MD Complaint: "Heart racing", Palpitations Onset/Timin -: Hour(s) Context: Other (occured after exertion and coming in from the cold) Associated Symptoms: Chest pain Treatments Prior to Arrival: Other - Related Data Home Medications Medication Instructions Recorded Confirmed Last Taken Lisinopril 10 mg PO DAILY 06/26/19 06/26/19 Unknown Previous Rx's Medication Instructions Recorded Diltiazem HCl [Cardizem Cd] 120 mg PO DAILY 30 Days #30 01/15/18 cap.er.24h Clopidogrel Bisulfate [Plavix] 75 mg PO DAILY #20 tab 06/26/19 Allergies Allergy/AdvReac Type Severity Reaction Status Date / Time No Known Drug Allergies Allergy Verified 02/08/19 17:07 Travel Screening - Travel/Exposure Within Last 30 Days Have you traveled within the last 30 days?: No Review of Systems Reviewed: No additional complaints except as noted below Constitutional: Reports: As per HPI. Denies: Chills, Fever, Malaise, Night sweats, Weakness, Weight change Eyes: Reports: As per HPI. Denies: Eye discharge, Eye pain, Photophobia, Vision change ENT: Reports: As per HPI. Denies: Congestion, Dental pain, Ear pain, Epistaxis, Hearing loss, Throat pain Respiratory: Reports: As per HPI. Denies: Cough, Dyspnea, Hemoptysis, Stridor, Wheezes Cardiovascular: Reports: As per HPI. Denies: Arrhythmia, Chest pain, Dyspnea on exertion, Edema, Murmurs, Orthopnea, Palpitations, Paroxysmal nocturnal dyspnea, Rheumatic Fever, Syncope Endocrine: Reports: As per HPI. Denies: Fatigue, Heat or cold intolerance, Po lydipsia, Polyuria Gastrointestinal: Reports: As per HPI. Denies: Abdominal pain, Constipation, Diarrhea, Hematemesis, Hematochezia, Melena, Nausea, Vomiting Genitourinary: Reports: As per HPI. Denies: Dysuria, Frequency, Hematuria, Incontinence, Retention, Testicular pain, Testicular mass, Urgency Musculoskeletal: Reports: As per HPI. Denies: Arthralgia, Back pain, Gout, Joint swelling, Myalgia, Neck pain Skin: Reports: As per HPI. Denies: Bruising, Change in color, Change in hair/nails, Lesions, Pruritus, Rash Neurological: Reports: As per HPI. Denies: Abnormal gait, Confusion, Headache, Numbness, Paresthesias, Seizure, Tingling, Tremors, Vertigo, Weakness Psychiatric: Reports: As per HPI. Denies: Anxiety, Auditory hallucinations, D epression, Homicidal thoughts, Suicidal thoughts, Visual hallucinations Hematological/Lymphatic: Reports: As per HPI. Denies: Anemia, Blood Clots, Easy bleeding, Easy bruising, Swollen glands Past Medical History - SOCIAL HISTORY Smoking Status: Former smoker - RESPIRATORY Hx Respiratory Disorders: Yes Hx Bronchitis: Yes - CARDIOVASCULAR Hx Cardio Disorders: Yes Hx Cardiac Cath: Yes Hx Chest Pain: Yes (triple bypass denies [place]) Hx Irregular Heartbeat: Yes (afib) Hx Palpitations: Yes Comment:: stent placed - NEURO Hx Neuro Disorders: No - GI Hx GI Disorders: No - Hx Genitourinary Disorders: No - ENDOCRINE Hx Endocrine Disorders: No - MUSCULOSKELETAL Hx Musculoskeletal Disorders: Yes Hx Arthritis: Yes Comment:: gout - PSYCH Hx Psych Problems: No - HEMATOLOGY/ONCOLOGY Hx Hematology/Oncology Disorders: Yes Hx Cancer: Yes (Colon) Hx Chemotherapy: Yes Hx Radiation Therapy: Yes Family Medical History Any Significant Family History?: Yes Hx Heart Disease: Father Hx HTN: Brother/Sister Hx Resp Disorders: Brother/Sister Physical Exam - General General Appearance: Alert, Oriented x3, Cooperative, No acute distress - Head Head exam: Normal inspection - Eye Eye exam: Normal appearance, PERRL, EOMI Pupils: Normal accommodation - ENT ENT exam: Normal exam, Mucous membranes moist, Normal external ear exam, Normal orophraynx Ear exam: Normal external inspection. negative: External canal tenderness Nasal Exam: Normal inspection. negative: Discharge, Sinus tenderness Mouth exam: Normal external inspection, Tongue normal Teeth exam: Normal inspection. negative: Dental caries Throat exam: Normal inspection. negative: Tonsillar erythema, Tonsillar exudate - Neck Neck exam: Normal inspection, Full ROM. negative: Tenderness - Respiratory Respiratory exam: Normal lung sounds bilaterally. negative: Respiratory distress - Cardiovascular Cardiovascular Exam: Normal rhythm, Normal heart sounds, Tachycardia - GI/Abdominal GI/Abdominal exam: Soft, Normal bowel sounds. negative: Tenderness - Rectal Rectal exam: Deferred - exam: Deferred - Extremities Extremities exam: Normal inspection, Full ROM, Normal capillary refill. negative: Tenderness - Back Back exam: Reports: Normal inspection, Full ROM. Denies: Muscle spasm, Rash noted, Tenderness - Neurological Neurological exam: Alert, CN II-XII intact, Normal gait, Oriented X3 - Psychiatric Psychiatric exam: Normal affect, Normal mood - Skin Skin exam: Dry, Intact, Normal color, Warm Course Vital Signs 06/26/19 14:08 Temperature 97.6 F Pulse Rate 152 H Respiratory 20 Rate Blood Pressure 125/90 Pulse Ox 97 - Reevaluation(s) Reevaluation #1: 06/26/19 16:15 pt easily converted with 10mg of cardiazem. his cp is gone. he has a hi d- dimer. he was advised that he needs to be transferred to [facility] for vq as he has decreased renal insufficiency. he is refusing and is going to leave [facility]. this was d/w dr morales from [facility] cardiology who recommended he be restarted on plavix. pt warned of risks of going [facility] including Medical Decision Making - Lab Data Result diagrams: 06/26/19 14:15 06/26/19 14:15 Lab Results 06/26/19 06/26/19 06/26/19 Range/Units 14:15 14:15 14:15 WBC 9.2 (4.2-12.2) K/uL RBC 4.64 (4.40-5.70) M/uL Hgb 14.7 (14.0-18.0) gm/dl Hct 44.1 (42.0-52.0) % MCV 95.0 (81-97) fl MCH 31.7 (27-33) pg MCHC 33.3 (32-36) g/dl RDW 12.9 (11.5-14.5) % Plt Count 224 (130-400) K/uL MPV 9.3 (7.4-10.4) fl Gran % 71.1 (47-80) % Lymphocytes % 14.0 L (16-45) % Monocytes % 8.7 (0-9) % Eosinophils % 5.9 (0-6) % Basophils % 0.3 (0-6) % Absolute Neutrophils 6.57 D-Dimer 1.39 H (0-0.59) mg/L FEU Sodium 131 L (136-145) mmol/L Potassium 4.3 (3.4-4.5) mmol/L Chloride 95 L (98-107) mmol/L Carbon Dioxide 21.0 L (22-29) mmol/L Anion Gap 15.0 (7-16) BUN 26 H (8-23) mg/dL Creatinine 1.5 H (0.7-1.2) mg/dL Estimated GFR 48 mL/min Random Glucose 131 H (74-109) mg/dL Calcium 9.6 (8.8-10.2) mg/dL Creatine Kinase 150 (39-308) U/L CK-MB (CK-2) 3.2 (<6.73) ng/mL Troponin T < 0.010 (0-0.010) ng/mL Disposition Disposition: Other Clinical Impression: SVT (supraventricular tachycardia), Elevated d-dimer, Renal insufficiency Disposition: Against Medical Advice Condition: (3) Guarded Instructions: Supraventricular Tachycardia (ED) Additional Instructions: may return at any time. follow up with [facility] Prescriptions: Clopidogrel Bisulfate [Plavix] 75 mg PO DAILY #20 tab Quality - Quality Measures Quality Measures: N/A - Blood Pressure Screening Does Patient Have Any of the Following: Active Dx of HTN Blood Pressure Classification: Hypertensive Reading Systolic Measurement: 125 Diastolic Measurement: 90 Screening for High Blood Pressure: Patient Exclusion, Hx of HTN [G9744]
== END 2019-06-26 16:36 | disposition left against medical advice (07) ==
LOC: ER 14:00
DX: I47.1 Supraventricular tachycardia (principal); R79.89 Other specified abnormal findings of blood chemistry; N28.9 Disorder of kidney and ureter, unspecified; Z87.891 Personal history of nicotine dependence
CPT/HCPCS: 99285 ×2; 96374; 82550; 85025; 82553; 80048; 84484; 85379; 93005; 93010; J3490

== ENCOUNTER 2019-07-01 03:20 | Emergency (ER) | payer BC ==
[2019-07-01] MEDS: ADENOSINE 6 MG/2 ML VIAL IVP ONE ×2 (03:30→03:33)
--- NOTE | 2019-07-01 03:33 | Emergency Department Record ---
History of Present Illness - General Chief Complaint: Chest Pain Stated Complaint: CHEST PAIN Time Seen by Provider: 07/01/19 03:22 Source: Patient Mode of Arrival: Ambulatory Limitations: No limitations - History of Present Illness Initial Comments: 79 yo male returns to ED for return of chest discomfort associated with palpitations. Patient has a history of non-compliance with his Cardizem, reports that he only took "a half a tab last night as it makes him sleep until 9:30 AM". Patient denies fevers, chills, or recent illness. Patient did take ASA 324 mg prior to arrival. MD Complaint: Other Onset/Timin -: Hour(s) Onset: Awoke with symptoms Pain Location: Substernal Pain Radiation: None Severity scale (1-10): 3 Quality: Sharp Consistency: Constant Improves With: Movement Worsens With: Nothing Other Symptoms: Acid taste in mouth Treatments Prior to Arrival: Aspirin - Related Data Previous Rx's Medication Instructions Recorded Diltiazem HCl [Cardizem Cd] 120 mg PO DAILY 30 Days #30 01/15/18 cap.er.24h Clopidogrel Bisulfate [Plavix] 75 mg PO DAILY #20 tab 06/26/19 Allergies Allergy/AdvReac Type Severity Reaction Status Date / Time No Known Drug Allergies Allergy Verified 07/01/19 03:29 Travel Screening - Travel/Exposure Within Last 30 Days Have you traveled within the last 30 days?: No - Travel/Exposure Within Last Year Have you traveled outside the [place] in the last year?: No - Additonal Travel Details Have you been exposed to anyone with a communicable illness?: No - Travel Symptoms Symptom Screening: None Review of Systems Constitutional: Denies: Chills, Fever, Malaise, Night sweats Eyes: Denies: Eye discharge, Eye pain ENT: Denies: Congestion, Ear pain, Epistaxis Respiratory: Denies: Cough, Dyspnea Cardiovascular: Reports: Chest pain, Palpitations. Denies: Dyspnea on exertion Endocrine: Denies: Fatigue, Heat or cold intolerance Gastrointestinal: Denies: Abdominal pain, Nausea, Vomiting Genitourinary: Denies: Incontinence, Retention Musculoskeletal: Denies: Arthralgia, Back pain Skin: Denies: Bruising, Change in color Neurological: Denies: Abnormal gait, Confusion, Headache, Seizure Psychiatric: Denies: Anxiety Hematological/Lymphatic: Denies: Anemia, Blood Clots Past Medical History - SOCIAL HISTORY Smoking Status: Former smoker Alcohol Use: None Drug Use: None - RESPIRATORY Hx Respiratory Disorders: Yes Hx Bronchitis: Yes - CARDIOVASCULAR Hx Cardio Disorders: Yes Hx Cardiac Cath: Yes Hx Chest Pain: Yes (triple bypass denies [place]) Hx Irregular Heartbeat: Yes (afib) Hx Palpitations: Yes Comment:: stent placed - NEURO Hx Neuro Disorders: No - GI Hx GI Disorders: No - Hx Genitourinary Disorders: No - ENDOCRINE Hx Endocrine Disorders: No - MUSCULOSKELETAL Hx Musculoskeletal Disorders: Yes Hx Arthritis: Yes Comment:: gout - PSYCH Hx Psych Problems: No - HEMATOLOGY/ONCOLOGY Hx Hematology/Oncology Disorders: Yes Hx Cancer: Yes (Colon) Hx Chemotherapy: Yes Hx Radiation Therapy: Yes Family Medical History Any Significant Family History?: No Hx Heart Disease: Father Hx HTN: Brother/Sister Hx Resp Disorders: Brother/Sister Physical Exam - General General Appearance: Alert, Oriented x3, Cooperative, Mild distress Limitations: No limitations - Head Head exam: Atraumatic, Normocephalic, Normal inspection Head exam detail: negative: Abrasion, Contusion, Copeland's sign, General tenderness, Hematoma, Laceration - Eye Eye exam: Normal appearance. negative: Conjunctival injection, Periorbital swelling, Periorbital tenderness, Scleral icterus - ENT Ear exam: negative: Auricular hematoma, Auricular trauma Nasal Exam: negative: Active bleeding, Discharge, Dried blood, Foreign body Mouth exam: negative: Drooling, Laceration, Muffled voice, Tongue elevation - Neck Neck exam: Normal inspection. negative: Meningismus, Tenderness - Respiratory Respiratory exam: Normal lung sounds bilaterally. negative: Rales, Respiratory distress, Rhonchi, Stridor - Cardiovascular Cardiovascular Exam: Normal rhythm, Normal heart sounds, Tachycardia - GI/Abdominal GI/Abdominal exam: Soft. negative: Rebound, Rigid, Tenderness - Rectal Rectal exam: Deferred - exam: Deferred - Extremities Extremities exam: Normal inspection. negative: Pedal edema, Tenderness - Back Back exam: Denies: CVA tenderness (R), CVA tenderness (L) - Neurological Neurological exam: Alert, Normal gait, Oriented X3 - Psychiatric Psychiatric exam: Normal affect, Normal mood - Skin Skin exam: Normal color. negative: Abrasion Type of lesion: negative: abrasion Course Vital Signs 07/01/19 03:21 Temperature 97.6 F Pulse Rate 150 H Respiratory 20 Rate Blood Pressure 124/84 Pulse Ox 99 - Reevaluation(s) Reevaluation #1: 07/01/19 03:35 EKG: SVT 148 RBBB, Normal axis Rate-related ST-T wave changes Reevaluation #2: 07/01/19 03:43 Patient converted to NSR with Adenosine 12 mg. Repeat EKG obtained. Reevaluation #3: 07/01/19 03:53 EKG: NSR 76 RBBB, normal axis, normal intervals No acute ST-T wave changes Reevaluation #4: 07/01/19 03:59 Troponin is negative for myocardial injury. Patient was counseled to take his Cardizem as prescribed to prevent reoccurrence of his symptoms. Critical Care Time Critical Care Time: Yes Total Critical Care Time: 35 Critical Care Time: Diagnosis and treatment of SVT with RBBB Chemical cardioversion to NSR Multiple EKG interpretations and patient reassessments Review of previous records Interpretations of laboratory studies Disposition Disposition: Discharge Clinical Impression: SVT (supraventricular tachycardia) Disposition: Home, Self-Care Condition: (2) Stable Instructions: Supraventricular Tachycardia (ED) Additional Instructions: Return to ED if your symptoms worsen or if you have any concerns. TAKE YOUR CARDIZEM PRESCRIBED. Follow-up with your freight forwarder in 3-5 days as directed. Forms: Patient Portal Access Time of Disposition: 03:59 Quality - Quality Measures Quality Measures: N/A - Blood Pressure Screening Does Patient Have Any of the Following: No Blood Pressure Classification: Pre-Hypertensive BP Reading Systolic Measurement: 124 Diastolic Measurement: 84 Screening for High Blood Pressure: < Pre-Hypertensive BP, F/U Documented > [G8950] Pre-Hypertensive Follow-up Interventions: Referral to alternative/primary care provider.
[2019-07-01] MEDS ORDERED: ADENOSINE 12 MG/4 ML VIAL IVP ONE (03:34)
== END 2019-07-01 04:10 | disposition home or self-care (01) ==
LOC: ER 03:20
DX: I47.1 Supraventricular tachycardia (principal); I45.10 Unspecified right bundle-branch block; Z87.891 Personal history of nicotine dependence
CPT/HCPCS: 84484; 93005; 93010; 96374; 99291

== ENCOUNTER 2019-07-18 04:11 | Emergency (ER) | payer BC ==
[2019-07-18] MEDS ORDERED: ADENOSINE 12 MG/4 ML VIAL IVP ONE (04:29)
--- NOTE | 2019-07-18 04:29 | Emergency Department Record ---
History of Present Illness - General Chief Complaint: Rapid heartbeat Stated Complaint: RAPID HEARTBEAT Time Seen by Provider: 07/18/19 04:24 Source: Patient Mode of Arrival: Ambulatory Limitations: No limitations - History of Present Illness Initial Comments: 79 yo male presents to ED for evaluation of rapid heart beat this morning that awoke him from sleep. Patient reports a history of SVT previously and non- compliance with his Cardizem at home as it "makes me feel tired", reports he only takes a "1/2 a pill". Patient denies fevers, chills, or recent illness. Patient has seen [facility] in the past but has not seen them for some time. Patient does report taking ASA prior to arrival. MD Complaint: "Heart racing" -: Hour(s) Context: Awoke with symptoms Arrythmia History: Atrial fibrillation, History of electrical cardioversion, On anti-coagulants Associated Symptoms: Chest pain - Related Data Previous Rx's Medication Instructions Recorded Diltiazem HCl [Cardizem Cd] 120 mg PO DAILY 30 Days #30 01/15/18 cap.er.24h Clopidogrel Bisulfate [Plavix] 75 mg PO DAILY #20 tab 06/26/19 Allergies Allergy/AdvReac Type Severity Reaction Status Date / Time No Known Drug Allergies Allergy Verified 07/01/19 03:29 Travel Screening - Travel/Exposure Within Last 30 Days Have you traveled within the last 30 days?: No - Travel/Exposure Within Last Year Have you traveled outside the [place] in the last year?: No - Additonal Travel Details Have you been exposed to anyone with a communicable illness?: No - Travel Symptoms Symptom Screening: None Review of Systems Constitutional: Denies: Chills, Fever, Malaise, Night sweats Eyes: Denies: Eye discharge, Eye pain ENT: Denies: Congestion, Ear pain, Epistaxis Respiratory: Denies: Cough, Dyspnea Cardiovascular: Reports: Palpitations. Denies: Chest pain, Dyspnea on exertion Endocrine: Denies: Fatigue, Heat or cold intolerance Gastrointestinal: Denies: Abdominal pain, Nausea, Vomiting Genitourinary: Denies: Incontinence, Retention Musculoskeletal: Denies: Arthralgia, Back pain Skin: Denies: Bruising, Change in color Neurological: Denies: Abnormal gait, Confusion, Headache, Seizure Psychiatric: Denies: Anxiety Hematological/Lymphatic: Reports: Easy bleeding, Easy bruising. Denies: Anemia, Blood Clots Past Medical History - SOCIAL HISTORY Smoking Status: Former smoker Alcohol Use: None Drug Use: None - RESPIRATORY Hx Respiratory Disorders: Yes Hx Bronchitis: Yes - CARDIOVASCULAR Hx Cardio Disorders: Yes Hx Cardiac Cath: Yes Hx Chest Pain: Yes (triple bypass denies [place]) Hx Irregular Heartbeat: Yes (afib) Hx Palpitations: Yes Comment:: stent placed - NEURO Hx Neuro Disorders: No - GI Hx GI Disorders: No - Hx Genitourinary Disorders: No - ENDOCRINE Hx Endocrine Disorders: No - MUSCULOSKELETAL Hx Musculoskeletal Disorders: Yes Hx Arthritis: Yes Comment:: gout - PSYCH Hx Psych Problems: No - HEMATOLOGY/ONCOLOGY Hx Hematology/Oncology Disorders: Yes Hx Cancer: Yes (Colon) Hx Chemotherapy: Yes Hx Radiation Therapy: Yes Family Medical History Any Significant Family History?: No Hx Heart Disease: Father Hx HTN: Brother/Sister Hx Resp Disorders: Brother/Sister Physical Exam - General General Appearance: Alert, Oriented x3, Cooperative, Mild distress Limitations: No limitations - Head Head exam: Atraumatic, Normocephalic, Normal inspection Head exam detail: negative: Abrasion, Contusion, Copeland's sign, General tenderness, Hematoma, Laceration - Eye Eye exam: Normal appearance. negative: Conjunctival injection, Periorbital swelling, Periorbital tenderness, Scleral icterus - ENT Ear exam: negative: Auricular hematoma, Auricular trauma Nasal Exam: negative: Active bleeding, Discharge, Dried blood, Foreign body Mouth exam: negative: Drooling, Laceration, Muffled voice, Tongue elevation - Neck Neck exam: Normal inspection. negative: Meningismus, Tenderness - Respiratory Respiratory exam: Normal lung sounds bilaterally. negative: Rales, Respiratory distress, Rhonchi, Stridor - Cardiovascular Cardiovascular Exam: Normal rhythm, Normal heart sounds, Tachycardia - GI/Abdominal GI/Abdominal exam: Soft. negative: Rebound, Rigid, Tenderness - Rectal Rectal exam: Deferred - exam: Deferred - Extremities Extremities exam: Normal inspection. negative: Pedal edema, Tenderness - Back Back exam: Denies: CVA tenderness (R), CVA tenderness (L) - Neurological Neurological exam: Alert, Normal gait, Oriented X3 - Psychiatric Psychiatric exam: Normal affect, Normal mood - Skin Skin exam: Normal color. negative: Abrasion Type of lesion: negative: abrasion Course Vital Signs 07/18/19 04:14 Pulse Rate 147 H Respiratory 22 Rate Blood Pressure 118/90 Pulse Ox 97 - Reevaluation(s) Reevaluation #1: 07/18/19 04:25 EKG: SVT 146 Normal Intervals Rate-related changes Reevaluation #2: 07/18/19 04:38 Patient was chemically cardioverted with Cardizem 12 mg IVP to NSR with RBBB. No complications. Reevaluation #3: 07/18/19 04:46 Repeat EKG: NSR [address]-T wave changes Following a long discussion with the patient, he reports that he will take his Cardizem as prescribed. 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 Disposition Disposition: Discharge Clinical Impression: SVT (supraventricular tachycardia) Disposition: Home, Self-Care Condition: (2) Stable Instructions: Supraventricular Tachycardia (ED) Additional Instructions: Return to ED if your symptoms worsen or if you have any concerns. TAKE YOUR CARDIZEM PRESCRIBED. Follow-up with your family doctor in 3-5 days as directed. Forms: Patient Portal Access Time of Disposition: 04:34 Quality - Quality Measures Quality Measures: N/A - Blood Pressure Screening Does Patient Have Any of the Following: No Blood Pressure Classification: Hypertensive Reading Systolic Measurement: 118 Diastolic Measurement: 90 Screening for High Blood Pressure: < First Hypertensive BP, F/U Documented > [G8950] First Hypertensive Follow-up Interventions: Referral to alternative/primary care provider.
== END 2019-07-18 04:54 | disposition home or self-care (01) ==
LOC: ER 04:11
DX: I47.1 Supraventricular tachycardia (principal); I48.91 Unspecified atrial fibrillation; Z79.01 Long term (current) use of anticoagulants; Z87.891 Personal history of nicotine dependence
CPT/HCPCS: 99284 ×2; 96374; 93005; 93010; J0153